=== PATIENT | female | born 1970 | race Caucasian/White ===

== ENCOUNTER 2020-10-14 16:04 | Inpatient (IN) ==
[2020-10-14] MEDS ORDERED: dilTIAZem HCl 5 MG/ML 5 ML VIAL IV STA (16:41)
[2020-10-14] MEDS ORDERED: STAT IV Infusion **Titration per Protocol STA (16:41)
[2020-10-14] MEDS ORDERED: SODIUM CHLORIDE 0.9% 500 ML IV SCH (16:45)
[2020-10-14] MEDS ORDERED: dilTIAZem HCL 125 MG in DEXTROSE 5% 100 ML IV SCH (16:45)
--- NOTE | 2020-10-14 16:48 | Emergency Department Note ---
Impression & Plan Syncope, Cervical strain, Hypertension, UTI (urinary tract infection), Atrial fibrillation ED Provider Note NAME: ALEX RICARDO AGE: 50 SEX: F : 1970 ARRIVES VIA: Walk-In INFORMANT: [Patient] ED PROVIDER(S): [Fabrizio Menezes MD] CHIEF COMPLAINT: Syncope HISTORY OF PRESENT ILLNESS: The patient is a 50-year-old female presents after a syncopal event. The patient was reaching into her car and shut the car door after. She felt a sudden pressure in the back of her neck and then she woke up on the ground. She had passed out. She complains of some posterior neck pain since falling, there is no headache. The neck pain is minimal. The patient does not have any chest pain, she is not short of breath. She has been in baseline health as of late with the exception of some left hand numbness. Her left hand has been numb for about a week, she felt it was likely a pinched nerve. She went to the chiropractor yesterday and had her neck manipulated, this did not really seem to help her symptoms. The patient is concerned that she might have mets to her brain. She had breast cancer several years ago and has bilateral mastectomies. She has never had a stroke. She has no heart history. REVIEW OF SYSTEMS: See HPI for pertinent positives and negatives. A total of ten systems were reviewed and were otherwise negative. PMHx/PSHx: See Below SOCIAL HISTORY: See Below. PHYSICAL EXAM: GENERAL: Patient is in no acute distress. HEENT: No acute trauma, normocephalic atraumatic, mucous membranes moist, no nasal congestion, no scleral icterus. NECK: No stridor, no adenopathy, no posterior C-spine step-off or point tenderness, trachea is midline. LUNGS: Clear to auscultation bilaterally, no wheeze, no rhonchi, breath sounds equal. HEART: Irregular and tachycardic, no murmurs. ABDOMEN: Soft, nontender, bowel sounds positive, no hernias, no peritonitis. EXTREMITIES: No cyanosis or edema, full range of motion of all the joints without pain or difficulty, no signs for acute trauma. NEUROLOGIC: Oriented x 3, no acute motor or sensory deficits, no focal weakness. The hand grasps are equal bilaterally. SKIN: No rash, no jaundice, no diaphoresis. DIFFERENTIAL DIAGNOSIS: Infection, dehydration, metabolic abnormality, carotid or vertebral artery dissection, stroke, atrial fibrillation, atrial flutter, SVT, PE, intracranial bleed, cervical spine fracture or strain, hypo/hyperglycemia, electrolyte disturbance, anemia, hypoxia, cardiac sources, intracerebral event, toxicologic issues, stroke, TIA, as well as other pathologies. EMERGENCY DEPARTMENT COURSE/PROCEDURES: ECG: Indication was syncope. The ECG shows atrial fibrillation with a rate of 109. There is no ST elevation, no PVCs. There is some nonspecific ST change. The QTc is 460. Repeat ECG: Indication was atrial fibrillation. The ECG shows what appears to be a normal sinus rhythm. The rate is 75. There is no ST elevation, no PVCs. The QTc is 448. Compared to the ECG from earlier today, the A. fib is no longer present. Continuous Cardiac Monitoring: An order was placed for continuous cardiac monitoring. The monitor shows a rate of 124 with atrial fibrillation. Critical Care Note: I have personally spent 45 minutes of critical care time in the direct management of this patient. This includes bedside care, interpretation of diagnostic studies, and testing, discussion with consultants, patient, and family members, and other required patient management activities. This 45 minutes is in excess of all separately billable procedures. MEDICAL DECISION MAKING: There is no leukocytosis or concerning anemia. There is a normal platelet count. No coagulopathy. No significant electrolyte abnormality or kidney failure. No concerning liver enzyme elevation. The patient appears to be in a euthyroid state. Urinalysis is suggestive of infection. Covid testing returned negative. Initial EKG showed a rapid A. fib, no acute ischemia. Repeat EKG a short time later showed a sinus rhythm. Cardiac enzyme testing x1 is not consistent with acute cardiac injury. Chest film does not show pneumonia or CHF. Brain CT shows no acute bleed or mass-effect. C-spine CT shows no acute fracture. CT angio of the head and neck do not show any evidence for aneurysm or occlusion. CT angio of the chest does not show evidence for PE or aortic dissection. The patient presents with syncope and collapse. This happened suddenly with hardly any warning. She felt pain in the back of her neck and then collapsed. She presented to this ED and was initially in a rapid A. fib. This spontaneously resolved without any medication administration. The patient received IV saline, 500 cc. She was given IV hydralazine for high blood pressure. She received IV ceftriaxone as treatment for UTI. The patient requires a hospital stay for what happened today. Further work-up is in order, I am concerned about dysrhythmia. With regard to the left hand numbness for a week, the etiology is unclear. Certainly, a small stroke could be the cause. MRI may be warranted during her hospital stay, a neurology con sult may be warranted during her hospital stay. I talked to the patient and case management. The on-call hospitalist was consulted. Past Med/Surg History Medical History Breast cancer, right Surgical History H/O resection of liver H/O right mastectomy Family History (Updated 10/15/18 @ 03:20 by Judd Rudd) Other No significant family history Social History Smoking Status: Never smoker Feels Safe at Home: Yes Allergies Allergies Allergy/AdvReac Type Severity Reaction Status Date / Time bupivacaine Allergy Severe anaphylaxis Verified 10/14/20 17:38 . dexamethasone Allergy Severe anaphylaxis Verified 10/14/20 17:38 lidocaine Allergy Severe anaphylactic Verified 10/14/20 17:38 rxn codeine Allergy Intermediate sick Verified 10/14/20 17:38 Home Meds Home Medications Medication Instructions Recorded Confirmed anastrozole 1 mg PO DAILY 10/15/18 10/14/20 Results & Data (ED) Vital Signs Vital Signs - 24 hr 10/14/20 16:14 10/14/20 16:30 10/14/20 16:33 Temperature 36.6 C Temperature Source Temporal Artery Scan Pulse Rate 79 132 H 135 H Pulse Rate [Right Finger] 138 H Pulse Rate from SpO2 Sensor 128 H 123 H Respiratory Rate 20 24 21 Respiratory Effort / Characteristics Non-Labored Spontaneous Non-Labored Spontaneous Respiratory Depth Normal Normal Respiratory Pattern Regular Regular Blood Pressure 158/103 H 152/113 H Blood Pressure [Left Arm] 152/113 H Blood Pressure Mean 121 126 Blood Pressure Mean [Left Arm] 126 Blood Pressure Position Sitting Blood Pressure Position [Left Arm] Sitting Pulse Oximetry 95 97 97 Oxygen Delivery Method Room Air Room Air Sepsis Recent Fever Within 48 Hours No Sepsis New/Unexplained Change in Mental Status N/A Sepsis Action Taken by Nursing No Action Required 10/14/20 16:40 10/14/20 16:42 10/14/20 16:50 Temperature Temperature Source Pulse Rate 148 H 75 Pulse Rate [Right Finger] Pulse Rate from SpO2 Sensor 113 H 75 Respiratory Rate 16 17 Respiratory Effort / Characteristics Respiratory Depth Respiratory Pattern Blood Pressure Blood Pressure [Left Arm] Blood Pressure Mean Blood Pressure Mean [Left Arm] Blood Pressure Position Blood Pressure Position [Left Arm] Pulse Oximetry 91 99 97 Oxygen Delivery Method Room Air Sepsis Recent Fever Within 48 Hours Sepsis New/Unexplained Change in Mental Status Sepsis Action Taken by Nursing 10/14/20 17:00 10/14/20 17:07 10/14/20 17:10 Temperature Temperature Source Pulse Rate 73 74 79 Pulse Rate [Right Finger] Pulse Rate from SpO2 Sensor 74 76 78 Respiratory Rate 16 20 17 Respiratory Effort / Characteristics Respiratory Depth Respiratory Pattern Blood Pressure 145/99 H Blood Pressure [Left Arm] Blood Pressure Mean 114 Blood Pressure Mean [Left Arm] Blood Pressure Position Blood Pressure Position [Left Arm] Pulse Oximetry 97 97 97 Oxygen Delivery Method Sepsis Recent Fever Within 48 Hours Sepsis New/Unexplained Change in Mental Status Sepsis Action Taken by Nursing 10/14/20 17:20 10/14/20 17:30 10/14/20 17:40 Temperature Temperature Source Pulse Rate 73 75 72 Pulse Rate [Right Finger] Pulse Rate from SpO2 Sensor 73 75 72 Respiratory Rate 19 20 17 Respiratory Effort / Characteristics Respiratory Depth Respiratory Pattern Blood Pressure 161/101 H Blood Pressure [Left Arm] Blood Pressure Mean 121 Blood Pressure Mean [Left Arm] Blood Pressure Position Blood Pressure Position [Left Arm] Pulse Oximetry 97 96 96 Oxygen Delivery Method Sepsis Recent Fever Within 48 Hours Sepsis New/Unexplained Change in Mental Status Sepsis Action Taken by Nursing 10/14/20 17:50 10/14/20 18:16 10/14/20 18:20 Temperature Temperature Source Pulse Rate 71 75 70 Pulse Rate [Right Finger] Pulse Rate from SpO2 Sensor 71 75 71 Respiratory Rate 15 17 17 Respiratory Effort / Characteristics Respiratory Depth Respiratory Pattern Blood Pressure Blood Pressure [Left Arm] Blood Pressure Mean Blood Pressure Mean [Left Arm] Blood Pressure Position Blood Pressure Position [Left Arm] Pulse Oximetry 96 97 97 Oxygen Delivery Method Sepsis Recent Fever Within 48 Hours Sepsis New/Unexplained Change in Mental Status Sepsis Action Taken by Nursing 10/14/20 18:30 10/14/20 19:30 10/14/20 20:00 Temperature Temperature Source Pulse Rate 71 67 63 Pulse Rate [Right Finger] Pulse Rate from SpO2 Sensor 71 Respiratory Rate 14 15 16 Respiratory Effort / Characteristics Respiratory Depth Respiratory Pattern Blood Pressure 164/103 H 146/103 H 151/106 H Blood Pressure [Left Arm] Blood Pressure Mean 123 117 121 Blood Pressure Mean [Left Arm] Blood Pressure Position Blood Pressure Position [Left Arm] Pulse Oximetry 97 97 98 Oxygen Delivery Method Sepsis Recent Fever Within 48 Hours Sepsis New/Unexplained Change in Mental Status Sepsis Action Taken by Nursing 10/14/20 20:30 10/14/20 21:00 10/14/20 21:30 Temperature Temperature Source Pulse Rate 72 71 72 Pulse Rate [Right Finger] Pulse Rate from SpO2 Sensor Respiratory Rate 17 16 15 Respiratory Effort / Characteristics Respiratory Depth Respiratory Pattern Blood Pressure 145/97 H 155/106 H 152/106 H Blood Pressure [Left Arm] Blood Pressure Mean 113 122 121 Blood Pressure Mean [Left Arm] Blood Pressure Position Blood Pressure Position [Left Arm] Pulse Oximetry 96 97 97 Oxygen Delivery Method Sepsis Recent Fever Within 48 Hours Sepsis New/Unexplained Change in Mental Status Sepsis Action Taken by Nursing 10/14/20 22:00 Temperature Temperature Source Pulse Rate 84 Pulse Rate [Right Finger] Pulse Rate from SpO2 Sensor Respiratory Rate 19 Respiratory Effort / Characteristics Respiratory Depth Respiratory Pattern Blood Pressure 156/98 H Blood Pressure [Left Arm] Blood Pressure Mean 117 Blood Pressure Mean [Left Arm] Blood Pressure Position Blood Pressure Position [Left Arm] Pulse Oximetry 95 Oxygen Delivery Method Sepsis Recent Fever Within 48 Hours Sepsis New/Unexplained Change in Mental Status Sepsis Action Taken by Long-Term Medications Current Medication List: was personally reviewed by me Laboratory Data Attestation: I reviewed the patient's lab results. Result diagrams: 10/14/20 16:52 10/14/20 16:52 Lab Results 10/14/20 10/14/20 10/14/20 Range/Units 16:52 16:52 16:52 WBC 7.64 (4.8-10.8) K/uL RBC 5.04 (4.2-5.4) M/uL Hgb 15.3 (12.0-16.0) g/dL Hct 45.1 (37-47) % MCV 89.5 (80-100) fL MCH 30.4 (25-34) pg MCHC 33.9 (32-36) g/dL RDW Std Deviation 43.8 (36.4-46.3) fL RDW Coeff of Stalin 13.4 (11.5-14.5) % Plt Count 336 (130-400) K/uL MPV 9.3 (7.4-10.4) fL Immature Gran % (Auto) 0.1 % Neut % (Auto) 58.3 % Lymph % (Auto) 30.5 % Wayne % (Auto) 7.9 % Eos % (Auto) 2.7 % Baso % (Auto) 0.5 % Neut # (Auto) 4.45 (1.4-6.5) K/uL Lymph # (Auto) 2.33 (1.2-3.4) K/uL Wayne # (Auto) 0.60 H (0.11-0.59) K/uL Eos # (Auto) 0.21 (0-0.5) K/uL Baso # (Auto) 0.04 (0-0.2) K/uL Immature Gran # (Auto) 0.01 (0.00-0.02) K/uL PT 9.4 (9.0-12.0) Seconds INR 0.9 (0.9-1.1) APTT 24.9 (21.0-31.0) Seconds PTT Ratio 0.9 Sodium 138 (136-145) mmol/L Potassium 4.1 (3.5-5.1) mmol/L Chloride 105 (98-107) mmol/L Carbon Dioxide 25 (21-32) mmol/L Anion Gap 8.0 (3-11) BUN 13 (7-18) mg/dl Creatinine 1.01 (0.6-1.2) mg/dl Est Cr Clr Drug Dosing 99.5 ml/min Est GFR ( Amer) 75.2 ml/min Est GFR (Non-Af Amer) 64.9 ml/min BUN/Creatinine Ratio 13.2 (10-20) Glucose 109 H (70-99) mg/dl Calcium 9.5 (8.5-10.1) mg/dl Magnesium 2.3 (1.8-2.4) mg/dl Total Bilirubin 0.3 (0.2-1) mg/dl AST 43 H (15-37) U/L ALT 67 (12-78) U/L Alkaline Phosphatase 48 (45-117) U/L Troponin I < 0.015 (0-0.045) ng/ml Total Protein 7.8 (6.4-8.2) gm/dl Albumin 4.1 (3.4-5.0) gm/dl Globulin 3.7 (2.5-4.0) gm/dl Albumin/Globulin Ratio 1.1 (0.9-2) TSH 2.130 (0.300-4.500) uIu/ml Specimen Hemolysis Urine Color Urine Appearance (Clear) Urine pH (4.5-7.5) Ur Specific [place] (1.000-1.030) Urine Protein (Negative) Urine Glucose (UA) (Negative) Urine Ketones (Negative) Urine Blood (Negative) Urine Nitrite (Negative) Urine Bilirubin (Negative) Urine Urobilinogen (Negative) Ur Leukocyte Esterase (Negative) Urine WBC (Auto) (0-5) /hpf Urine RBC (Auto) (0-4) /hpf U Hyaline Cast (Auto) (0-5) /lpf U Epithel Cells (Auto) (0-5) /lpf Urine Bacteria (Auto) (Negative) Urine Yeast COVID-19 Eval Order SARS-CoV-2 (PCR) (Negative) 10/14/20 10/14/20 10/14/20 Range/Units 18:56 19:48 19:48 WBC (4.8-10.8) K/uL RBC (4.2-5.4) M/uL Hgb (12.0-16.0) g/dL Hct (37-47) % MCV (80-100) fL MCH (25-34) pg MCHC (32-36) g/dL RDW Std Deviation (36.4-46.3) fL RDW Coeff of Stalin (11.5-14.5) % Plt Count (130-400) K/uL MPV (7.4-10.4) fL Immature Gran % (Auto) % Neut % (Auto) % Lymph % (Auto) % Wayne % (Auto) % Eos % (Auto) % Baso % (Auto) % Neut # (Auto) (1.4-6.5) K/uL Lymph # (Auto) (1.2-3.4) K/uL Wayne # (Auto) (0.11-0.59) K/uL Eos # (Auto) (0-0.5) K/uL Baso # (Auto) (0-0.2) K/uL Immature Gran # (Auto) (0.00-0.02) K/uL PT (9.0-12.0) Seconds INR (0.9-1.1) APTT (21.0-31.0) Seconds PTT Ratio Sodium (136-145) mmol/L Potassium (3.5-5.1) mmol/L Chloride (98-107) mmol/L Carbon Dioxide (21-32) mmol/L Anion Gap (3-11) BUN (7-18) mg/dl Creatinine (0.6-1.2) mg/dl Est Cr Clr Drug Dosing ml/min Est GFR ( Amer) ml/min Est GFR (Non-Af Amer) ml/min BUN/Creatinine Ratio (10-20) Glucose (70-99) mg/dl Calcium (8.5-10.1) mg/dl Magnesium (1.8-2.4) mg/dl Total Bilirubin (0.2-1) mg/dl AST (15-37) U/L ALT (12-78) U/L Alkaline Phosphatase (45-117) U/L Troponin I (0-0.045) ng/ml Total Protein (6.4-8.2) gm/dl Albumin (3.4-5.0) gm/dl Globulin (2.5-4.0) gm/dl Albumin/Globulin Ratio (0.9-2) TSH (0.300-4.500) uIu/ml Specimen Hemolysis Urine Color Yellow Urine Appearance Cloudy A (Clear) Urine pH 7.0 (4.5-7.5) Ur Specific [place] 1.042 H (1.000-1.030) Urine Protein Negative (Negative) Urine Glucose (UA) Negative (Negative) Urine Ketones Negative (Negative) Urine Blood Negative (Negative) Urine Nitrite Negative (Negative) Urine Bilirubin Negative (Negative) Urine Urobilinogen Negative (Negative) Ur Leukocyte Esterase 2+ H (Negative) Urine WBC (Auto) >30 H (0-5) /hpf Urine RBC (Auto) 0-4 (0-4) /hpf U Hyaline Cast (Auto) 1-5 (0-5) /lpf U Epithel Cells (Auto) 20-30 H (0-5) /lpf Urine Bacteria (Auto) Negative (Negative) Urine Yeast Not Reportable COVID-19 Eval Order Covid19 at [facility] SARS-CoV-2 (PCR) NEGATIVE (Negative) Administered Medications Discontinued Medications Hydralazine HCl (Hydralazine Hcl 20 Mg/Ml Vial) 10 mg IV NOW STA Stop: 10/14/20 19:56 Last Admin: 10/14/20 20:14 Dose: 10 mg Documented by: [id number] Sodium Chloride (Nss) 500 mls @ 999 mls/hr IV .Q31M ZOE Stop: 10/14/20 17:15 Last Infusion: 10/14/20 17:53 Dose: 0 mls/hr Documented by: [id number] Admin: 10/14/20 17:08 Dose: 999 mls/hr Documented by: [id number] Ceftriaxone Sodium (Rocephin) 2,000 mg in 70 mls @ 140 mls/hr IV NOW STA Stop: 10/14/20 19:54 Last Infusion: 10/14/20 20:16 Dose: 0 mls/hr Documented by: [id number] Admin: 10/14/20 19:46 Dose: 140 mls/hr Documented by: [id number] Ioversol (Optiray 350 500ml) 112 ml IV ONCE ONE Stop: 10/14/20 18:12 Last Admin: 10/14/20 18:11 Dose: 112 ml Documented by: [id number] Miscellaneous (Stat Iv Infusion Titration Per Protocol) 1 ea N/A NOW STA Stop: 10/14/20 16:42 Last Admin: 10/14/20 18:47 Dose: Not Given Documented by: [id number] Imaging Data Radiologist's Impression: Cervical Spine CT 10/14/20 16:42 CT OF THE CERVICAL SPINE CLINICAL HISTORY: Neck pain status post trauma. Left arm numbness. History of neck manipulation. COMPARISON STUDY: No previous studies for comparison. CT DOSE: TECHNIQUE: CT scan of the cervical spine was performed from the skull base to the thoracic inlet. Images are reviewed in the axial, sagittal, and coronal planes. IV contrast was not administered for this examination. A dose lowering technique was utilized adhering to the principles of ALARA. FINDINGS: There are shotty bilateral cervical lymph nodes, statistically reactive. The visualized portions of the lung apices reveal no evidence of pneumothorax. The prevertebral soft tissues are normal. No fractures or subluxations are visualized. There are multilevel degenerative changes, most severe at the C5-C6, and C6-7 levels with posterior osteophytes. IMPRESSION: No evidence of acute fracture or traumatic subluxation. ACT 112: Negative or not required by law. Electronically signed by: Alex Alexander M.D. 10/14/2020 6:20 PM Chest CTA 10/14/20 16:42 CT ANGIOGRAM OF THE CHEST CLINICAL HISTORY: Syncope. Possible acute pulmonary embolism. COMPARISON STUDY: Chest x-ray dated 10/14/2020 TECHNIQUE: Following the IV administration of 112 mL of Optiray, CT angiogram of the thorax was performed from the thoracic inlet to the lung bases utilizing the pulmonary embolus protocol. Images are reviewed in the axial, sagittal, and coronal planes. IV contrast was administered without complication. MIP imaging was performed. A dose lowering technique was utilized adhering to the principles of ALARA. CT DOSE: FINDINGS: No pathologically enlarged axillary mediastinal or hilar lymph nodes were visualized. There was no evidence of thoracic aortic dilatation. Pulmonary artery opacification is less than optimal. There are however no pulmonary artery filling defects to indicate acute pulmonary embolism. No pleural effusions are visualized. There are benign appearing peripheral interstitial nodules along the major fissure. There is no focal pulmonary consolidation to indicate a pneumonia. There is no pneumothorax. Typically benign subpleural nodules are also visualized within the left upper lobe. None of these exceed 3 mm in diameter. In an average risk patient, no further follow-up is indicated. IMPRESSION: 1. Suboptimal pulmonary arterial opacification, but no findings to indicate acute pulmonary embolism. If pulmonary embolism remains a strong clinical concern, correlation with serial leg ultrasonography would be recommended. 2. No evidence of focal pulmonary consolidation 3. Multiple subpleural left lung pulmonary nodules. In an average risk patient, no further follow-up is indicated. ACT 112: Negative or not required by law. Electronically signed by: Alex Alexander M.D. 10/14/2020 6:[address] 10/14/20 16:42 CT head/brain wo con CLINICAL HISTORY: Head pain status post trauma. Left arm numbness. COMPARISON STUDY: No previous studies for comparison. TECHNIQUE: Axial CT of the brain is performed from the vertex to the skull base. IV contrast was not administered for this examination. A dose lowering technique was utilized adhering to the principles of ALARA. CT DOSE: FINDINGS: No intra or extra-axial mass lesions are visualized. There are age-indeterminate left basal ganglia lacunar infarcts. There is no midline shift. There is no acute hemorrhage. No calvarial fractures are visualized. There is no evidence of pathologic ventricular dilatation. There is no evidence of acute sinusitis IMPRESSION: 1. Age-indeterminate basal ganglia lacunar infarcts. 2. An MRI could be obtained in follow-up as deemed clinically appropriate. ACT 112: Negative or not required by law. Electronically signed by: Alex Alexander M.D. 10/14/2020 6:19 PM Neck CTA 10/14/20 16:42 CT angio neck with con CLINICAL HISTORY: Left hand numbness status post neck manipulation. Head trauma. Left arm numbness. COMPARISON STUDY: No previous studies for comparison. TECHNIQUE: CT angiography was performed from the aortic arch to the skull base. MIP imaging was performed. The patient was scanned in a dynamic helical fashion during intravenous administration of 112 cc of Optiray. A dose lowering technique was utilized adhering to the principles of ALARA. CT DOSE: Technique: CT angiogram of the carotid and vertebral arteries was obtained using intravenous contrast and 3-D reconstruction. NASCET criteria was utilized. Findings: The right carotid revealed no evidence of aneurysm and no evidence of dissection. There is no evidence of hemodynamic significant stenosis. The left carotid revealed no evidence of hemodynamic significant stenosis. There is no evidence of aneurysm. There is no evidence of dissection. There is no evidence of hemodynamically significant vertebral stenosis. There is no evidence of vertebral dissection. IMPRESSION: No evidence of hemodynamically significant carotid or vertebral artery stenosis. No evidence of dissection. ACT 112: Negative or not required by law. Electronically signed by: Alex Alexander M.D. 10/14/2020 6:30 PM Head CTA 10/14/20 16:44 CT angio head w con CLINICAL HISTORY: left hand numb, syncope TECHNIQUE: CT angiography of the head was performed in a dynamic helical fashion during intravenous administration of 112 cc of Optiray. MIP imaging was performed. A dose lowering technique was utilized adhering to the principles of ALARA. CT DOSE: 3064.43 mGy.cm COMPARISON STUDY: Noncontrast head CT dated 10/14/2020 FINDINGS: There are no lesion suspicious for aneurysm. There are no major intra cranial branch occlusions. The dural venous sinuses appear patent. IMPRESSION: 1. No evidence of aneurysm, intracranial branch occlusion, or major intracranial stenosis. ACT 112: Negative or not required by law. Electronically signed by: Alex Alexander M.D. 10/14/2020 6:34 PM Chest X-Ray 10/14/20 16:45 XR chest 1V portable CLINICAL HISTORY: syncope COMPARISON STUDY: No previous studies for comparison. FINDINGS: The cardiac and mediastinal contours are normal. There is no evidence of focal pulmonary consolidation. There is no evidence of failure. No pleural effusions are visualized.[ IMPRESSION: No active disease in the chest. ACT 112: Negative or not required by law. Electronically signed by: Alex Alexander M.D. 10/14/2020 5:10 PM Head Trauma GCS Score: 15 Discharge Plan Visit Data Chief Complaint: Neuro Symptoms/Deficit Stated Complaint: PASSED OUT AT WORK, L HAND NUMBNESS ED Provider: Fabrizio Menezes Discharge Problem: Syncope, Cervical strain, Hypertension, UTI (urinary tract infection), Atrial fibrillation Patient Disposition: Admitted As Inpatient Condition: Fair Discharge Instructions Interventions: ED Discharge Assessment Last Done: 10/14/20 22:17 Discharge Problem: Syncope Qualifiers: Syncope type: unspecified Qualified Code(s): R55 - Syncope and collapse Cervical strain Qualifiers: Encounter type: initial encounter Qualified Code(s): S16.1XXA - Strain of muscle, fascia and tendon at neck level, initial encounter Hypertension Qualifiers: Hypertension type: unspecified Qualified Code(s): I10 - Essential (primary) hypertension UTI (urinary tract infection) Qualifiers: Urinary tract infection type: acute cystitis Hematuria presence: without hematuria Qualified Code(s): N30.00 - Acute cystitis without hematuria Atrial fibrillation Qualifiers: Atrial fibrillation type: paroxysmal Qualified Code(s): I48.0 - Paroxysmal atrial fibrillation
[2020-10-14 17:04] LABS: Basophils # (auto) 0.04 K/uL (0-0.2); Basophils % (auto) 0.5 %; Eosinophils # (auto) 0.21 K/uL (0-0.5); Eosinophils % (auto) 2.7 %; Hematocrit (blood only) 45.1 % (37-47); Hemoglobin 15.3 g/dL (12.0-16.0); Immature Granulocytes # (auto) 0.01 K/uL (0.00-0.02); Immature Granulocytes % (auto) 0.1 %; Lymphocytes # (auto) 2.33 K/uL (1.2-3.4); Lymphocytes % (auto) 30.5 %; Mean Corpuscular Hemoglobin 30.4 pg (25-34); Mean Corpuscular Hgb Conc 33.9 g/dL (32-36); Mean Corpuscular Volume 89.5 fL (80-100); Mean Platelet Volume 9.3 fL (7.4-10.4); Monocytes % (auto) 7.9 %; Neutrophils # (auto) 4.45 K/uL (1.4-6.5); Neutrophils % (auto) 58.3 %; Platelet Count 336 K/uL (130-400); RDW Coefficient of Variation 13.4 % (11.5-14.5); RDW Standard Deviation 43.8 fL (36.4-46.3); Red Blood Count 5.04 M/uL (4.2-5.4); White Blood Count 7.64 K/uL (4.8-10.8)
--- NOTE | 2020-10-14 17:11 | XRay Report ---
XR chest 1V portable CLINICAL HISTORY: syncope COMPARISON STUDY: No previous studies for comparison. FINDINGS: The cardiac and mediastinal contours are normal. There is no evidence of focal pulmonary co nsolidation. There is no evidence of failure. No pleural effusions are visualized.[ IMPRESSION: No active disease in the chest. ACT 112: Negative or not required by law. Electronically signed by: Alex Alexander M.D. 10/14/2020 5:10 PM
[2020-10-14 17:15] LABS: INR 0.9 (0.9-1.1); Partial Thromboplastin Ratio 0.9; Partial Thromboplastin Time 24.9 Seconds (21.0-31.0); Prothrombin Time 9.4 Seconds (9.0-12.0)
[2020-10-14 17:53] LABS: Alanine Aminotransferase 67 U/L (12-78); Albumin Level 4.1 gm/dl (3.4-5.0); Aspartate Aminotransferase 43 U/L (15-37); BUN Creatinine Ratio 13.2 (10-20); Blood Urea Nitrogen 13 mg/dl (7-18); Calcium 9.5 mg/dl (8.5-10.1); Carbon Dioxide 25 mmol/L (21-32); Chloride 105 mmol/L (98-107); Creatinine Clr Calc Pharmacy 99.5 ml/min; Est GFR (African American) 75.2 ml/min; Est GFR (Non-African American) 64.9 ml/min; Glucose 109 mg/dl (70-99); Potassium 4.1 mmol/L (3.5-5.1); Sodium 138 mmol/L (136-145)
[2020-10-14 18:01] LABS: Albumin Globulin Ratio 1.1 (0.9-2); Alkaline Phosphatase 48 U/L (45-117); Bilirubin,Total 0.3 mg/dl (0.2-1); Globulin 3.7 gm/dl (2.5-4.0); Magnesium 2.3 mg/dl (1.8-2.4); Total Protein 7.8 gm/dl (6.4-8.2); Troponin I < 0.015 ng/ml (0-0.045)
[2020-10-14] MEDS ORDERED: OPTIRAY 350 500ml IV ONE (18:11)
--- NOTE | 2020-10-14 18:20 | CT Scan Report ---
CT head/brain wo con CLINICAL HISTORY: Head pain status post trauma. Left arm numbness. COMPARISON STUDY: No previous studies for comparison. TECHNIQUE: Axial CT of the brain is performed from the vertex to the skull base. IV contrast was not administered for this examination. A dose lowering technique was utilized adhering to the principles of ALARA. CT DOSE: FINDINGS: No intra or extra-axial mass lesions are visualized. There are age-indeterminate left basal ganglia l acunar infarcts. There is no midline shift. There is no acute hemorrhage. No calvarial fractures are visualized. There is no evidence of pathologic ventricular dilatation. There is no evidence of acute sinusitis IMPRESSION: 1. Age-indeterminate basal ganglia lacunar infarcts. 2. An MRI could be obtained in follow-up as deemed clinically appropriate. ACT 112: Negative or not required by law. Electronically signed by: Alex Alexander M.D. 10/14/2020 6:19 PM
--- NOTE | 2020-10-14 18:21 | CT Scan Report ---
CT OF THE CERVICAL SPINE CLINICAL HISTORY: Neck pain status post trauma. Left arm numbness. History of neck manipulation. COMPARISON STUDY: No previous studies for comparison. CT DOSE: TECHNIQUE: CT scan of the cervical spine was performed from the skull base to the thoracic inlet. Abena ges are reviewed in the axial, sagittal, and coronal planes. IV contrast was not administered for thi s examination. A dose lowering technique was utilized adhering to the principles of ALARA. FINDINGS: There are shotty bilateral cervical lymph nodes, statistically reactive. The visualized portions of the lung apices reveal no evidence of pneumothorax. The prevertebral soft tissues are normal. No fractures or subluxations are visualized. There are multilevel degenerative changes, most severe at the C5-C6, and C6-7 levels with posterior o steophytes. IMPRESSION: No evidence of acute fracture or traumatic subluxation. ACT 112: Negative or not required by law. Electronically signed by: Alex Alexander M.D. 10/14/2020 6:20 PM
--- NOTE | 2020-10-14 18:32 | CT Scan Report ---
CT angio neck with con CLINICAL HISTORY: Left hand numbness status post neck manipulation. Head trauma. Left arm numbness. COMPARISON STUDY: No previous studies for comparison. TECHNIQUE: CT angiography was performed from the aortic arch to the skull base. MIP imaging was perfo rmed. The patient was scanned in a dynamic helical fashion during intravenous administration of 112 c c of Optiray. A dose lowering technique was utilized adhering to the principles of ALARA. CT DOSE: Technique: CT angiogram of the carotid and vertebral arteries was obtained using intravenous contrast and 3-D reconstruction. NASCET criteria was utilized. Findings: The right carotid revealed no evidence of aneurysm and no evidence of dissection. There is no evidenc e of hemodynamic significant stenosis. The left carotid revealed no evidence of hemodynamic significant stenosis. There is no evidence of an eurysm. There is no evidence of dissection. There is no evidence of hemodynamically significant vertebral stenosis. There is no evidence of verte bral dissection. IMPRESSION: No evidence of hemodynamically significant carotid or vertebral artery stenosis. No evidence of disse ction. ACT 112: Negative or not required by law. Electronically signed by: Alex Alexander M.D. 10/14/2020 6:30 PM
--- NOTE | 2020-10-14 18:35 | CT Scan Report ---
CT angio head w con CLINICAL HISTORY: left hand numb, syncope TECHNIQUE: CT angiography of the head was performed in a dynamic helical fashion during intravenous a dministration of 112 cc of Optiray. MIP imaging was performed. A dose lowering technique was utilized adhering to the principles of ALARA. CT DOSE: 3064.43 mGy.cm COMPARISON STUDY: Noncontrast head CT dated 10/14/2020 FINDINGS: There are no lesion suspicious for aneurysm. There are no major intracranial branch occlusi ons. The dural venous sinuses appear patent. IMPRESSION: 1. No evidence of aneurysm, intracranial branch occlusion, or major intracranial stenosis. ACT 112: Negative or not required by law. Electronically signed by: Alex Alexander M.D. 10/14/2020 6:34 PM
--- NOTE | 2020-10-14 18:42 | CT Scan Report ---
CT ANGIOGRAM OF THE CHEST CLINICAL HISTORY: Syncope. Possible acute pulmonary embolism. COMPARISON STUDY: Chest x-ray dated 10/14/2020 TECHNIQUE: Following the IV administration of 112 mL of Optiray, CT angiogram of the thorax was perfo rmed from the thoracic inlet to the lung bases utilizing the pulmonary embolus protocol. Images are r eviewed in the axial, sagittal, and coronal planes. IV contrast was administered without complication . MIP imaging was performed. A dose lowering technique was utilized adhering to the principles of AL ASAF. CT DOSE: FINDINGS: No pathologically enlarged axillary mediastinal or hilar lymph nodes were visualized. There was no evidence of thoracic aortic dilatation. Pulmonary artery opacification is less than optimal. There are however no pulmonary artery filling de fects to indicate acute pulmonary embolism. No pleural effusions are visualized. There are benign appearing peripheral interstitial nodules along the major fissure. There is no focal pulmonary consolidation to indicate a pneumonia. There is no pneumothorax. Typically benign subpleur al nodules are also visualized within the left upper lobe. None of these exceed 3 mm in diameter. In an average risk patient, no further follow-up is indicated. IMPRESSION: 1. Suboptimal pulmonary arterial opacification, but no findings to indicate acute pulmonary embolism. If pulmonary embolism remains a strong clinical concern, correlation with serial leg ultrasonography would be recommended. 2. No evidence of focal pulmonary consolidation 3. Multiple subpleural left lung pulmonary nodules. In an average risk patient, no further follow-up is indicated. ACT 112: Negative or not required by law. Electronically signed by: Alex Alexander M.D. 10/14/2020 6:41 PM
[2020-10-14 19:12] LABS: Appearance Urine Cloudy (Clear); Bacteria Urine Automated Negative (Negative); Bilirubin Urine Negative (Negative); Blood Urine Negative (Negative); Color Urine Yellow; Epithelial Cell Urine Auto 20-30 /lpf (0-5); Glucose Urine UA Negative (Negative); Ketones Urine Negative (Negative); Leukocyte Esterase Urine 2+ (Negative); Nitrite Urine Negative (Negative); Protein Urine Negative (Negative); RBC Urine Automated 0-4 /hpf (0-4); Specific Gravity Urine 1.042 (1.000-1.030); Urobilinogen Urine Negative (Negative); WBC Urine Automated >30 /hpf (0-5)
[2020-10-14] MEDS ORDERED: cefTRIAXone SODIUM 2,000 MG/70 ML BAG IV STA (19:25)
[2020-10-14] MEDS ORDERED: hydrALAZINE HCL 20 MG/ML VIAL IV STA (19:55)
--- NOTE | 2020-10-14 21:10 | History & Physical Report ---
Date of Service October 14, 2020 Assessment & Plan (1) Syncope: Syncope- Unclear etiology. May be secondary to physiologic stress of urinary tract infection and mild dehydration Imaging is not consistent with acute stroke Symptoms possibly consistent with vertebrobasilar insufficiency, however, CTA of neck was negative We will place on stroke without TPA protocol, but not convinced that the patient has had an acute stroke as cause of symptoms Consult neurology Present on Admission?: Yes (2) Numbness of left hand: Duration of 1 week. She does have more pronounced cervical degenerative joint disease/foraminal narrowing on left on MRI of C-spine. She does have some chronic changes on MRI brain. Consult neurology for their opinion Present on Admission?: Yes (3) Degenerative joint disease of cervical spine: MRI cervical spine level foraminal stenosis from C3-C7 Present on Admission?: Yes (4) Chronic cerebrovascular accident (CVA): MRI of brain shows chronic infarct left lentiform nucleus starting baby aspirin daily Present on Admission?: Yes (5) UTI (urinary tract infection): Follow urine culture and sensitivity Continue ceftriaxone 2 g IV daily for empiric treatment Present on Admission?: Yes (6) Atrial flutter: Initial EKG showed asymptomatic atrial flutter, with follow-up EKG showing normal sinus rhythm. Start baby aspirin 81 mg daily Present on Admission?: Yes History of Present Illness Chief Complaint: The patient presents to the emergency department with complaint of a syncopal episode that occurred as she was reaching into her car and then shutting the car door afterwards, and complaint of 1 week of left hand numbness Primary Care Provider: Santosh Rosas The patient is a 50-year-old female with a past medical history including breast cancer, who presents to the emergency department with complaint of a syncopal episodes noted above, and 1 week of left hand numbness. Work-up in the emergency department included the following studies: CT of head without contrast showed age indeterminate basal ganglia infarcts CTA head neck were both negative MRI of brain showed a chronic infarct in the left lentiform nucleus MRI of C-spine showed multilevel foraminal stenosis from C3-C7. Initial EKG showed atrial flutter at rate of 100 bpm. Follow-up EKG showed normal sinus rhythm at 75 bpm. The change occurred without intervention Allergies Allergy/AdvReac Type Severity Reaction Status Date / Time bupivacaine Allergy Severe anaphylaxis Verified 10/14/20 17:38 . dexamethasone Allergy Severe anaphylaxis Verified 10/14/20 17:38 lidocaine Allergy Severe anaphylactic Verified 10/14/20 17:38 rxn codeine Allergy Intermediate sick Verified 10/14/20 17:38 Home Medications Medication Instructions Recorded Confirmed Type anastrozole 1 mg PO DAILY 10/15/18 10/14/20 History Past Med/Surg History Medical History Breast cancer, right Surgical History H/O resection of liver H/O right mastectomy Family History (Updated 10/15/18 @ 03:20 by Judd Rudd) Other No significant family history Social History Smoking Status: Never smoker Hx Substance Use: No Preferred Language: Yoruba Communication Ability: Effective Crushed Stone Grader Required: No Beliefs That Will Affect Care: None Current Living Situation: Spouse Current Living Situation Comment: Other Information That Helps Us Care for You: No Feels Safe at Home: Yes Safety Concerns: Feels Safe At This Time Assistive Devices: None Review of Systems Review of Systems: The patient denies chest pain, palpitations, shortness of breath, dyspnea on exertion, cough, lower extremity swelling, sore throat, fevers, chills, sweats, nausea, vomiting, diarrhea , constipation, abdominal pain, pelvic pain, blood in urine or stool, dysuria, urinary frequency or urgency, lightheadedness, dizziness, headache, rash, abnormal bruising or bleeding, imbalance, focal or generalized weakness, numbness or tingling in legs, generalized arthralgias or myalgias, or night sweats. The review of systems is otherwise negative other than for that already noted above, and at least 10 systems have been reviewed. Physical Exam Physical Exam: The patient is awake, alert and oriented 3, well developed and well nourished, normocephalic and atraumatic, lying in bed and in no acute distress. HEENT--PERRL, EOMI, mucous membranes and oropharynx dry. Neck--supple. No JVD. No bruits. Thyroid normal, trachea midline, no adenopathy. Heart--normal S1 and S2. No murmurs, rubs or gallops. Lungs--clear bilaterally, no respiratory distress, no accessory muscle use. Abdomen--normal bowel sounds and soft. Nontender. Nondistended. Morbidly obese Extremities--no cyanosis or clubbing. No edema. Dermatologic--normal skin turgor, normal color, no abnormal lymph nodes, no rash. Neurologic--cranial nerves II through XII grossly intact. Mildly decreased sensation to touch left hand Rheumatologic--normal range of motion. Psychiatric--normal affect. Results & Data Results & Data ([facility]) Vital Signs (Past 12 Hours) Vital Signs Temp Pulse Pulse Resp BP BP Pulse Ox 10/14/20 21:00 71 16 155/106 H 97 10/14/20 20:30 72 17 145/97 H 96 10/14/20 20:00 63 16 151/106 H 98 10/14/20 19:30 67 15 146/103 H 97 10/14/20 18:30 71 14 164/103 H 97 10/14/20 18:20 70 17 97 10/14/20 18:16 75 17 97 10/14/20 17:50 71 15 96 10/14/20 17:40 72 17 96 10/14/20 17:30 75 20 161/101 H 96 10/14/20 17:20 73 19 97 10/14/20 17:10 79 17 97 10/14/20 17:07 74 20 145/99 H 97 10/14/20 17:00 73 16 97 10/14/20 16:50 75 17 97 10/14/20 16:42 99 10/14/20 16:40 148 H 16 91 10/14/20 16:33 135 H 138 H 21 152/113 H 97 10/14/20 16:30 132 H 24 152/113 H 97 10/14/20 16:14 97.9 F 79 20 158/103 H 95 Laboratory Results Laboratory Results WBC 7.64 K/uL (4.8-10.8) 10/14/20 16:52 RBC 5.04 M/uL (4.2-5.4) 10/14/20 16:52 Hgb 15.3 g/dL (12.0-16.0) 10/14/20 16:52 Hct 45.1 % (37-47) 10/14/20 16:52 MCV 89.5 fL (80-100) 10/14/20 16:52 MCH 30.4 pg (25-34) 10/14/20 16:52 MCHC 33.9 g/dL (32-36) 10/14/20 16:52 RDW Std Deviation 43.8 fL (36.4-46.3) 10/14/20 16:52 RDW Coeff of Stalin 13.4 % (11.5-14.5) 10/14/20 16:52 Plt Count 336 K/uL (130-400) 10/14/20 16:52 MPV 9.3 fL (7.4-10.4) 10/14/20 16:52 Immature Gran % (Auto) 0.1 % 10/14/20 16:52 Neut % (Auto) 58.3 % 10/14/20 16:52 Lymph % (Auto) 30.5 % 10/14/20 16:52 [place] % (Auto) 7.9 % 10/14/20 16:52 Eos % (Auto) 2.7 % 10/14/20 16:52 Baso % (Auto) 0.5 % 10/14/20 16:52 Neut # (Auto) 4.45 K/uL (1.4-6.5) 10/14/20 16:52 Lymph # (Auto) 2.33 K/uL (1.2-3.4) 10/14/20 16:52 [place] # (Auto) 0.60 K/uL (0.11-0.59) H 10/14/20 16:52 Eos # (Auto) 0.21 K/uL (0-0.5) 10/14/20 16:52 Baso # (Auto) 0.04 K/uL (0-0.2) 10/14/20 16:52 Immature Gran # (Auto) 0.01 K/uL (0.00-0.02) 10/14/20 16:52 PT 9.4 Seconds (9.0-12.0) 10/14/20 16:52 INR 0.9 (0.9-1.1) 10/14/20 16:52 APTT 24.9 Seconds (21.0-31.0) 10/14/20 16:52 PTT Ratio 0.9 10/14/20 16:52 Sodium 138 mmol/L (136-145) 10/14/20 16:52 Potassium 4.1 mmol/L (3.5-5.1) 10/14/20 16:52 Chloride 105 mmol/L (98-107) 10/14/20 16:52 Carbon Dioxide 25 mmol/L (21-32) 10/14/20 16:52 Anion Gap 8.0 (3-11) 10/14/20 16:52 BUN 13 mg/dl (7-18) 10/14/20 16:52 Creatinine 1.01 mg/dl (0.6-1.2) 10/14/20 16:52 Est Cr Clr Drug Dosing 99.5 ml/min 10/14/20 16:52 Est GFR ( Amer) 75.2 ml/min 10/14/20 16:52 Est GFR (Non-Af Amer) 64.9 ml/min 10/14/20 16:52 BUN/Creatinine Ratio 13.2 (10-20) 10/14/20 16:52 Glucose 109 mg/dl (70-99) H 10/14/20 16:52 Calcium 9.5 mg/dl (8.5-10.1) 10/14/20 16:52 Magnesium 2.3 mg/dl (1.8-2.4) 10/14/20 16:52 Total Bilirubin 0.3 mg/dl (0.2-1) 10/14/20 16:52 AST 43 U/L (15-37) H 10/14/20 16:52 ALT 67 U/L (12-78) 10/14/20 16:52 Alkaline Phosphatase 48 U/L (45-117) 10/14/20 16:52 Troponin I < 0.015 ng/ml (0-0.045) 10/14/20 16:52 Total Protein 7.8 gm/dl (6.4-8.2) 10/14/20 16:52 Albumin 4.1 gm/dl (3.4-5.0) 10/14/20 16:52 Globulin 3.7 gm/dl (2.5-4.0) 10/14/20 16:52 Albumin/Globulin Ratio 1.1 (0.9-2) 10/14/20 16:52 TSH 2.130 uIu/ml (0.300-4.500) 10/14/20 16:52 Specimen Hemolysis 10/14/20 16:52 Urine Color Yellow 10/14/20 18:56 Urine Appearance Cloudy (Clear) A 10/14/20 18:56 Urine pH 7.0 (4.5-7.5) 10/14/20 18:56 Ur Specific [place] 1.042 (1.000-1.030) H 10/14/20 18:56 Urine Protein Negative (Negative) 10/14/20 18:56 Urine Glucose (UA) Negative (Negative) 10/14/20 18:56 Urine Ketones Negative (Negative) 10/14/20 18:56 Urine Blood Negative (Negative) 10/14/20 18:56 Urine Nitrite Negative (Negative) 10/14/20 18:56 Urine Bilirubin Negative (Negative) 10/14/20 18:56 Urine Urobilinogen Negative (Negative) 10/14/20 18:56 Ur Leukocyte Esterase 2+ (Negative) H 10/14/20 18:56 Urine WBC (Auto) >30 /hpf (0-5) H 10/14/20 18:56 Urine RBC (Auto) 0-4 /hpf (0-4) 10/14/20 18:56 U Hyaline Cast (Auto) 1-5 /lpf (0-5) 10/14/20 18:56 U Epithel Cells (Auto) 20-30 /lpf (0-5) H 10/14/20 18:56 Urine Bacteria (Auto) Negative (Negative) 10/14/20 18:56 Urine Yeast Not Reportable 10/14/20 18:56 COVID-19 Eval Order Covid19 at [facility] 10/14/20 19:48 SARS-CoV-2 (PCR) NEGATIVE (Negative) 10/14/20 19:[address] 10/14/20 16:42 CT OF THE CERVICAL SPINE CLINICAL HISTORY: Neck pain status post trauma. Left arm numbness. History of n nilesh manipulation. COMPARISON STUDY: No previous studies for comparison. CT DOSE: TECHNIQUE: CT scan of the cervical spine was performed from the skull base to the thoracic inlet. Images are reviewed in the axial, sagittal, and coronal planes. IV contrast was not administered for this examination. A dose lowering technique was utilized adhering to the principles of ALARA. FINDINGS: There are shotty bilateral cervical lymph nodes, statistically reactive. The visualized portions of the lung apices reveal no evidence of pneumothorax. The prevertebral soft tissues are normal. No fractures or subluxations are visualized. There are multilevel degenerative changes, most severe at the C5-C6, and C6-7 levels with posterior osteophytes. IMPRESSION: No evidence of acute fracture or traumatic subluxation. ACT 112: Negative or not required by law. Electronically signed by: Alex Alexander M.D. 10/14/2020 6:20 PM Chest CTA 10/14/20 16:42 CT ANGIOGRAM OF THE CHEST CLINICAL HISTORY: Syncope. Possible acute pulmonary embolism. COMPARISON STUDY: Chest x-ray dated 10/14/2020 TECHNIQUE: Following the IV administration of 112 mL of Optiray, CT angiogram of the thorax was performed from the thoracic inlet to the lung bases utilizing the pulmonary embolus protocol. Images are reviewed in the axial, sagittal, and coronal planes. IV contrast was administered without complication. MIP imaging was performed. A dose lowering technique was utilized adhering to the principles of ALARA. CT DOSE: FINDINGS: No pathologically enlarged axillary mediastinal or hilar lymph nodes were visualized. There was no evidence of thoracic aortic dilatation. Pulmonary artery opacification is less than optimal. There are however no pu lmonary artery filling defects to indicate acute pulmonary embolism. No pleural effusions are visualized. There are benign appearing peripheral interstitial nodules along the major fissure. There is no focal pulmonary consolidation to indicate a pneumonia. There is no pneumothorax. Typically benign subpleural nodules are also visualized within the left upper lobe. None of these exceed 3 mm in diameter. In an average risk patient, no further follow-up is indicated. IMPRESSION: 1. Suboptimal pulmonary arterial opacification, but no findings to indicate acute pulmonary embolism. If pulmonary embolism remains a strong clinical concern, correlation with serial leg ultrasonography would be recommended. 2. No evidence of focal pulmonary consolidation 3. Multiple subpleural left lung pulmonary nodules. In an average risk patient, no further follow-up is indicated. ACT 112: Negative or not required by law. Electronically signed by: Alex Alexander M.D. 10/14/2020 6:[address] 10/14/20 16:42 CT head/brain wo con CLINICAL HISTORY: Head pain status post trauma. Left arm numbness. COMPARISON STUDY: No previous studies for comparison. TECHNIQUE: Axial CT of the brain is performed from the vertex to the skull base. IV contrast was not administered for this examination. A dose lowering technique was utilized adhering to the principles of ALARA. CT DOSE: FINDINGS: No intra or extra-axial mass lesions are visualized. There are age-indeterminate left basal ganglia lacunar infarcts. There is no midline shift. There is no acute hemorrhage. No calvarial fractures are visualized. There is no evidence of pathologic ventricular dilatation. There is no evidence of acute sinusitis IMPRESSION: 1. Age-indeterminate basal ganglia lacunar infarcts. 2. An MRI could be obtained in follow-up as deemed clinically appropriate. ACT 112: Negative or not required by law. Electronically signed by: Alex Alexander M.D. 10/14/2020 6:19 PM Neck CTA 10/14/20 16:42 CT angio neck with con CLINICAL HISTORY: Left hand numbness status post neck manipulation. Head trauma. Left arm numbness. COMPARISON STUDY: No previous studies for comparison. TECHNIQUE: CT angiography was performed from the aortic arch to the skull base. MIP imaging was performed. The patient was scanned in a dynamic helical fashion during intravenous administration of 112 cc of Optiray. A dose lowering technique was utilized adhering to the principles of ALARA. CT DOSE: Technique: CT angiogram of the carotid and vertebral arteries was obtained using intravenous contrast and 3-D reconstruction. NASCET criteria was utilized. Findings: The right carotid revealed no evidence of aneurysm and no evidence of dissection. There is no evidence of hemodynamic significant stenosis. The left carotid revealed no evidence of hemodynamic significant stenosis. There is no evidence of aneurysm. There is no evidence of dissection. There is no evidence of hemodynamically significant vertebral stenosis. There is no evidence of vertebral dissection. IMPRESSION: No evidence of hemodynamically significant carotid or vertebral artery stenosis. No evidence of dissection. ACT 112: Negative or not required by law. Electronically signed by: Alex Alexander M.D. 10/14/2020 6:30 PM Head CTA 10/14/20 16:44 CT angio head w con CLINICAL HISTORY: left hand numb, syncope TECHNIQUE: CT angiography of the head was performed in a dynamic helical fashion during intravenous administration of 112 cc of Optiray. MIP imaging was performed. A dose lowering technique was utilized adhering to the principles of ALARA. CT DOSE: 3064.43 mGy.cm COMPARISON STUDY: Noncontrast head CT dated 10/14/2020 FINDINGS: There are no lesion suspicious for aneurysm. There are no major intracranial branch occlusions. The dural venous sinuses appear patent. IMPRESSION: 1. No evidence of aneurysm, intracranial branch occlusion, or major intracranial stenosis. ACT 112: Negative or not required by law. Electronically signed by: Alex Alexander M.D. 10/14/2020 6:34 PM Chest X-Ray 10/14/20 16:45 XR chest 1V portable CLINICAL HISTORY: syncope COMPARISON STUDY: No previous studies for comparison. FINDINGS: The cardiac and mediastinal contours are normal. There is no evidence of focal pulmonary consolidation. There is no evidence of failure. No pleural effusions are visualized.[ IMPRESSION: No active disease in the chest. ACT 112: Negative or not required by law. Electronically signed by: Alex Alexander M.D. 10/14/2020 5:10 PM Diagnostic Findings [facility] Patient: ALEX RICARDO (Female) : 70 Status: Date: 10/15/20 00:27 Room #: S240-2 History: FELT SQUEEZING AT BACK OF NECK AND BLACKED OUT. LEFT HAND NUMBNESS FOR 1 WEEK. SAW CHIROPRACTOR TUESDAY. NO RECENT HEAD INJURY. NO KNOWN NECK INJURY. HX OF CA 3 OR 4 TIMES. HAS HAD BREAST CA, LYMPH NODES AND SKIN CA. HAS HAD CHEMO AND RADIATION. LAST CA WAS 2018. Slices: [phone] Priors: CT HEAD, CTA HEAD/NECK, CT C-SPINE Tech: Missael Anderson @ [phone] Exams: MRI HEAD , MRI C SPINE Contrast: IV Amt: 13.3 ML GADAVIST Accession Numbers: [id number] Preliminary Findings Only See Final Report For Complete Findings MRI HEAD : Impression: No evidence of acute infarction. Chronic infarction of the left lentiform nucleus. Mild parenchymal volume loss chronic microvascular ischemic changes. No mass lesion, mass effect, or hydrocephalus. No abnormal enhancement on postcontrast sequences. Mild mucosal thickening in the left maxillary sinus. MRI C SPINE : Impression: Exam is degraded by patient motion. Mild degenerative change of the cervical spine without high-grade spinal canal stenosis. Mild to moderate foraminal narrowing is seen in the cervical spine, most significant at C5-C6 and C6-C7 as well as moderate left foraminal narrowing at C3-C4. No discrete signal abnormality in the cervical spinal cord. Radiologist: Daniel Garrison MD Study ready at 00:36 and initial results transmitted at 00:56 Results also transmitted to [address] [place] [address] ([id number]) @ [phone] (Fax) Results also transmitted to ER, ER @ [phone] (Fax) *This report constitutes a preliminary interpretation only. Non-acute findings felt to be unrelated to the clinical presentation may not be discussed in this report. The study will be interpreted and a final report will be generated by the local Radiologist the following shift. To reach the hospital radiology department call [phone]. If a discrepancy is found between the preliminary and final interpretations of this study, please notify us via our Client Portal at [email or web address] QA Exams.You can also fax this report with a description of the discrepancy, or include the final report, to our daytime fax number [phone].If faxing, please indicate the severity of discrepancy using one of the following categories: [ ] 1 - Agree/Informational [ ] 2 - Unlikely to Affect Management [ ] 3 - Possible Eventual Change of Management [ ] 4 - Probable Immediate Change of Management For all other patient related information, please fax us at [phone]. [id number] Code Status & VTE Plan Code Status Full code VTE Prophylaxis Plan VTE Prophylaxis will be ordered: Yes PG Care Time/CCT Total # of Minutes Spent Total Time Spent with Patient: Total time spent is greater than 50% in coordination of care (as documented) at patient's floor/unit and/or counseling patient: Coding Level of Care Code 67291 Initial Inpt Care Lvl 3 Diagnoses Syncope R55 Syncope type: unspecified Numbness of left hand R20.0 Degenerative joint disease of cervical spine M47.812 Chronic cerebrovascular accident (CVA) I69.30 UTI (urinary tract infection) N30.00 Hematuria presence: without hematuria Urinary tract infection type: acute cystitis Atrial flutter I48.92 (1) Syncope Syncope type: unspecified Qualified Code(s): R55 - Syncope and collapse (2) UTI (urinary tract infection) Hematuria presence: without hematuria Urinary tract infection type: acute cystitis Qualified Code(s): N30.00 - Acute cystitis without hematuria
[2020-10-15] MEDS ORDERED: GADOBUTROL 65ML VIAL IV ONE (00:17)
[2020-10-15] MEDS ORDERED: ONDANSETRON INJ 2 MG/ML 2 ML VIAL IV PRN (00:39)
[2020-10-15] MEDS ORDERED: ACETAMINOPHEN 325 MG TAB PO PRN (00:39)
[2020-10-15] MEDS ORDERED: PHARMACIST DISCHARGE MED REC CONSULT PRN (05:13)
[2020-10-15 06:44] LABS: Basophils # (auto) 0.03 K/uL (0-0.2); Basophils % (auto) 0.6 %; Eosinophils # (auto) 0.25 K/uL (0-0.5); Eosinophils % (auto) 4.6 %; Hematocrit (blood only) 43.4 % (37-47); Hemoglobin 14.8 g/dL (12.0-16.0); Immature Granulocytes # (auto) 0.01 K/uL (0.00-0.02); Immature Granulocytes % (auto) 0.2 %; Lymphocytes # (auto) 2.01 K/uL (1.2-3.4); Lymphocytes % (auto) 37.2 %; Mean Corpuscular Hemoglobin 30.3 pg (25-34); Mean Corpuscular Hgb Conc 34.1 g/dL (32-36); Mean Corpuscular Volume 88.8 fL (80-100); Mean Platelet Volume 9.3 fL (7.4-10.4); Monocytes # (auto) 0.53 K/uL (0.11-0.59); Monocytes % (auto) 9.8 %; Neutrophils # (auto) 2.57 K/uL (1.4-6.5); Neutrophils % (auto) 47.6 %; Platelet Count 320 K/uL (130-400); RDW Coefficient of Variation 13.4 % (11.5-14.5); RDW Standard Deviation 43.9 fL (36.4-46.3); Red Blood Count 4.89 M/uL (4.2-5.4)
[2020-10-15 06:52] LABS: Partial Thromboplastin Time 25.5 Seconds (21.0-31.0); Prothrombin Time 9.9 Seconds (9.0-12.0)
[2020-10-15 07:18] LABS: Alanine Aminotransferase 59 U/L (12-78); Albumin Level 3.7 gm/dl (3.4-5.0); Aspartate Aminotransferase 33 U/L (15-37); BUN Creatinine Ratio 13.1 (10-20); Blood Urea Nitrogen 12 mg/dl (7-18); Calcium 8.8 mg/dl (8.5-10.1); Carbon Dioxide 25 mmol/L (21-32); Chloride 106 mmol/L (98-107); Creatinine Clr Calc Pharmacy 108.8 ml/min; Est GFR (African American) 85.3 ml/min; Est GFR (Non-African American) 73.6 ml/min; Glucose 104 mg/dl (70-99); Magnesium 2.3 mg/dl (1.8-2.4); Potassium 3.8 mmol/L (3.5-5.1); Sodium 138 mmol/L (136-145)
[2020-10-15 07:23] LABS: Alkaline Phosphatase 40 U/L (45-117); Bilirubin,Total 0.5 mg/dl (0.2-1); Globulin 3.6 gm/dl (2.5-4.0); Total Protein 7.3 gm/dl (6.4-8.2); Troponin I < 0.015 ng/ml (0-0.045)
--- NOTE | 2020-10-15 08:13 | Magnetic Resonance Report ---
MRI OF THE BRAIN WITHOUT AND WITH IV CONTRAST CLINICAL HISTORY: Syncope. Age-indeterminate basal ganglia infarcts. Left hand numbness. COMPARISON STUDY: Noncontrast head CT dated 10/14/2020 TECHNIQUE: MRI of the brain was performed from the vertex to the skull base utilizing various T1 and T2 weighted sequences. Following the IV administration of 13.3 mL of Gadavist contrast, additional en hanced images were obtained. FINDINGS: Sagittal T1, axial diffusion, proton density and T2 weighted axial, coronal FLAIR, and pre and post a xial T1-weighted images were acquired. These were supplemented with post gadolinium coronal T1 weight ed images. No intra or extra-axial mass lesions are visualized. Axial diffusion-weighted images reveal no evidence of acute or subacute infarction. There is no evidence of ventricular dilatation. Proton density T2-weighted and FLAIR images reveal evidence for an old left basal ganglia infarct. Th ere are minimal foci of increased T2 signal in the periventricular white matter There are no abnormal flow voids. There is no evidence of pathologic enhancement. IMPRESSION: 1. No acute intracranial findings 2. No evidence of acute or subacute infarction 3. No evidence of intracranial mass 4. Old left basal ganglia lacunar infarct. ACT 112: Negative or not required by law. Electronically signed by: Alex Alexander M.D. 10/15/2020 8:11 AM
[2020-10-15] MEDS ORDERED: Nursing to Pharmacy Communication SCH (09:00)
[2020-10-15] MEDS ORDERED: ANASTROZOLE 1 MG TAB PO SCH ×2 (09:00→21:00)
[2020-10-15] MEDS ORDERED: ATORVASTATIN 40 MG TAB PO SCH (09:00)
[2020-10-15] MEDS ORDERED: ASPIRIN 81 MG CHEW PO SCH (09:00)
--- NOTE | 2020-10-15 09:28 | Cardiology Consultation ---
Date of Consultation October 15, 2020 Assessment & Plan (1) Syncope: 1 she presents with an isolated episode of syncope, it was prolonged enough that she does not recall falling or hitting the ground. Since it was not witnessed we really do not know how long she was unconscious but it probably was not very long. She did present in atrial fibrillation however the rate was not very fast and she had no symptoms during the arrhythmia so that is not a likely cause of syncope. She did convert here in the emergency room with a short period of bradycardia however that was not sufficient to explain syncope either. It seems likely that some sort of arrhythmia triggered the event but I do not t hink we have enough information to consider pacemaker implantation (for possible tachybradycardia syndrome) and I am reluctant to rate control her atrial fibrillation given her syncopal event which is possibly due to bradycardia. I would recommend long-term monitoring, I would start with a 30-day event recorder, preferably an MCOT monitor as she may have asymptomatic episodes which we could identify before she has another syncopal event. (2) Paroxysmal atrial fibrillation: She presented with atrial fibrillation which was present for 17 minutes after being placed on telemetry, she was not aware of it so it is hard to know how long it was present. It may have somehow been related to her syncopal event but the rate was not very fast and she was asymptomatic so it seems unlikely the arrhythmia was a cause of the syncope. It is possible that she has frequent episodes and perhaps termination in sinus pauses triggered the syncopal event but we do not have documentation of that. From a 30-day monitor we can get an idea of her atrial fibrillation burden. Other than anticoagulation I would not treat the arrhythmia at this time due to the possibility of exacerbating bradycardia and syncope. I would use anticoagulation, I would recommend Eliquis 5 mg twice a day. History of Present Illness Reason for Consultation: Syncope Attending Physician: Iglesia Arroyo MD History of Present Illness This is a 50-year-old woman who presented October 14, 2020 with a syncopal event. She has a background history of breast cancer and has had bilateral mastectomies. She has no cardiovascular history. Evidently she felt sudden pressure in the back of her neck when she was standing by her car and then woke up on the ground. She does not recall falling. She cannot describe to me how long she was out, she does not think very long but someone came by and was asking her if she knew where she was but apparently the event was not witnessed. She had some neck discomfort after falling but did not have any other complaints such as chest discomfort, shortness of breath or palpitations. She does not recall feeling her heart beating rapidly either after this event or at other times in the past. She has never had a prior event. Evaluation emergency room was notable for her presenting in atrial fibrillation with a rapid heart rate, about 110 bpm. She tells me that it was probably an hour and a half before she got to the emergency room, evidently her was called who came and picked her up and it was only after that that she came into the emergency room. The atrial fibrillation rhythm converted to sinus rhythm with a few seconds of bradycardia after about 17 minutes of telemetry monitoring. A repeat electrocardiogram done on October 14, 2020 at 1658 shows sin us rhythm at 75 bpm and is normal. Laboratory studies are unremarkable. Imaging studies including an MRI and CT of the brain and a chest x-ray as well as a head and neck CT angiogram were all unremarkable. At the time my evaluation she is complaining of left hand numbness but no cardiovascular symptoms at all. Allergies Allergy/AdvReac Type Severity Reaction Status Date / Time bupivacaine Allergy Severe anaphylaxis Verified 10/14/20 17:38 . dexamethasone Allergy Severe anaphylaxis Verified 10/14/20 17:38 lidocaine Allergy Severe anaphylactic Verified 10/14/20 17:38 rxn codeine Allergy Intermediate sick Verified 10/14/20 17:38 Home Medications Medication Instructions Recorded Confirmed Type anastrozole 1 mg PO DAILY 10/15/18 10/14/20 History Patient History Medical History Breast cancer, right Surgical History H/O resection of liver H/O right mastectomy Family History Other No significant family history Social History Smoking Status: Never smoker Hx Substance Use: No Preferred Language: Hebrew Communication Ability: Effective Insurance Collector Required: No Beliefs That Will Affect Care: None Current Living Situation: Spouse Current Living Situation Comment: Other Information That Helps Us Care for You: No Feels Safe at Home: Yes Safety Concerns: Feels Safe At This Time Assistive Devices: None Physical Exam Physical Exam: Constitutional: Alert, cooperative and in no distress. HEENT: Unremarkable Neck: No jugular venous distention, carotid pulses are normal and equal bilaterally without bruits. Pulmonary: Clear to auscultation bilaterally. Cardiac: Regular rhythm with no murmur, gallop or rub. Abdomen: Soft, nontender with normal bowel sounds. Extremities: No edema. Distal pulses intact. Neurologic: No focal findings. Gait is steady. Skin: No rash, ecchymoses or petechiae. Bilateral mastectomies. Results & Data ([facility]) Vital Signs (Past 12 Hours) Vital Signs Temp Pulse Pulse Resp BP BP Pulse Ox 10/15/20 07:25 37.0 C 69 19 147/92 H 94 10/15/20 07:13 66 10/15/20 03:39 37.0 C 79 16 142/81 H 97 10/15/20 00:28 36.8 C 71 20 101/69 97 10/14/20 22:00 84 19 156/98 H 95 10/14/20 21:30 72 15 152/106 H 97 Laboratory Results Cardiac Enzymes 10/14/20 10/15/20 Range/Units 16:52 06:24 AST 43 H 33 (15-37) U/L Troponin I < 0.015 < 0.015 (0-0.045) ng/ml Coagulation 10/14/20 10/15/20 Range/Units 16:52 06:24 PT 9.4 9.9 (9.0-12.0) Seconds APTT 24.9 25.5 (21.0-31.0) Seconds CBC 10/14/20 10/15/20 Range/Units 16:52 06:24 WBC 7.64 5.40 (4.8-10.8) K/uL RBC 5.04 4.89 (4.2-5.4) M/uL Hgb 15.3 14.8 (12.0-16.0) g/dL Hct 45.1 43.4 (37-47) % Plt Count 336 320 (130-400) K/uL Neut # (Auto) 4.45 2.57 (1.4-6.5) K/uL Lymph # (Auto) 2.33 2.01 (1.2-3.4) K/uL [place]lin # (Auto) 0.60 H 0.53 (0.11-0.59) K/uL Eos # (Auto) 0.21 0.25 (0-0.5) K/uL Baso # (Auto) 0.04 0.03 (0-0.2) K/uL Comprehensive Metabolic Panel 10/14/20 10/15/20 Range/Units 16:52 06:24 Sodium 138 138 (136-145) mmol/L Potassium 4.1 3.8 (3.5-5.1) mmol/L Chloride 105 106 (98-107) mmol/L Carbon Dioxide 25 25 (21-32) mmol/L BUN 13 12 (7-18) mg/dl Creatinine 1.01 0.91 (0.6-1.2) mg/dl Glucose 109 H 104 H (70-99) mg/dl Calcium 9.5 8.8 (8.5-10.1) mg/dl AST 43 H 33 (15-37) U/L ALT 67 59 (12-78) U/L Alkaline Phosphatase 48 40 L (45-117) U/L Total Protein 7.8 7.3 (6.4-8.2) gm/dl Albumin 4.1 3.7 (3.4-5.0) gm/dl Intake and Output 10/14/20 10/15/20 10/15/20 22:59 06:59 14:59 Intake Total 570 / 1020 450 / 1020 Output Total 600 / 600 Balance 570 / 420 -150 / 420 Intake: IV 570 / 570 Sodium Chloride 0.9% 500 ml @ 500 / 500 999 mls/hr IV .Q31M ZOE Rx#: [id number] cefTRIAXone SODIUM 2,000 mg In 70 / 70 70 ml @ 140 mls/hr IV NOW STA Rx#:[id number] Oral 450 / 450 Output: Urine 600 / 600 Other: # Unmeasured Voids 1 Weight 133.8 kg 130.3 kg Weight Measurement Method Chair Scale Built in [facility] Diagnostic Findings Telemetry: Atrial fibrillation for 17 minutes after presentation, heart rate 110 to 120 bpm. Sinus rhythm since. PG Care Time/CCT Total # of Minutes Spent Total Time Spent with Patient: Total time spent is greater than 50% in coordination of care (as documented) at patient's floor/unit and/or counseling patient: Coding Level of Care Code 47830 Office/OBS Consult Lvl 4 Diagnoses Syncope R55 Syncope type: unspecified Paroxysmal atrial fibrillation I48.0 (1) Syncope Syncope type: unspecified Qualified Code(s): R55 - Syncope and collapse
--- NOTE | 2020-10-15 09:59 | XCELERA ---
[id number]
[2020-10-15 10:17] LABS: Estimated Average Glucose 126 mg/dl
[2020-10-15 10:33] LABS: Chol HDL Ratio 4; Cholesterol 231 mg/dl (0-200); HDL Cholesterol 52 mg/dl; LDL Cholesterol Calculated 138 mg/dl; Triglycerides 205 mg/dl (0-150); VLDL Cholesterol 41 mg/dl
--- NOTE | 2020-10-15 11:07 | Magnetic Resonance Report ---
MRI OF THE CERVICAL SPINE COMBO CLINICAL HISTORY: Cervicalgia. Left hand numbness. COMPARISON STUDY: CT of the cervical spine dated 10/14/2020. TECHNIQUE: MRI of the cervical spine is performed utilizing various T1 and T2-weighted sequences in t he axial and sagittal planes. Contrast-enhanced sequences are acquired following the IV administratio n of 13.3 cc of Gadavist. The examination is modestly degraded by motion artifact. FINDINGS: Cervical spine: Vertebral body height and alignment is maintained throughout the cervical spine. Ther e is straightening of the cervical lordosis. Anterior osteophytes are seen throughout. The atlantoden rupal articulation is maintained. The spinous processes appear intact. Small hemangiomas are noted in t he bodies of T2 and T3. Intervertebral discs: Degenerative disc desiccation is seen throughout the cervical spine. There is m ild loss of height, greatest at C5-C6 and C6-C7. Spinal cord: The cervical spinal cord is normal in morphology and signal intensity. No abnormal postc ontrast enhancement is identified. C2-C3: Mild facet arthropathy is of no consequence. The central canal and neural foramina are patent. C3-C4: A posterior disc osteophyte complex eccentric to the left abuts the ventral cord. Left lateral disc bulge in conjunction with uncovertebral and facet arthropathy contribute to moderate to severe left neural foraminal stenosis. This may impinge on the exiting left C4 nerve root. Uncovertebral and facet arthropathy contribute to mild to moderate right neural foraminal stenosis. C4-C5: Facet arthropathy contributes to mild right neural foraminal stenosis. C5-C6: A posterior disc osteophyte complex eccentric to the right abuts the ventral cord. Right later al disc bulge in conjunction with uncovertebral and facet arthropathy contributes to severe right ximena ral foraminal stenosis. This may impinge on the exiting right C6 nerve root. Uncovertebral and facet arthropathy contribute to mild left neural foraminal stenosis. C6-C7: A posterior disc osteophyte complex eccentric to the right effaces the ventral subarachnoid sp cheli. Right lateral disc bulge causes moderate right neural foraminal stenosis and may impinge on the exiting right C7 nerve root. The left neural foramen is patent. C7-T1: Unremarkable. Soft tissues: The prevertebral and paraspinous soft tissues are within normal limits. Brain parenchyma: The visualized brain parenchyma at the skull base is normal in appearance. IMPRESSION: 1. No acute abnormality is seen involving the cervical spine. 2. Osteopenia and spondylotic change as above. See discussion for detailed level by level analysis. 3. The cervical spinal cord is normal in morphology and signal intensity. No abnormal postcontrast en hancement is identified. Dictated: 10/15/2020 9:52 AM Transcribed: 10/15/2020 10:27 AM [place] [id number] [facility] Electronically signed by: Fabrizio Cordero M.D. 10/15/2020 11:06 AM
[2020-10-15] MEDS ORDERED: APIXABAN 5 MG TABLET PO SCH (12:00)
--- NOTE | 2020-10-15 13:24 | Electrocardiogram Report ---
Test Reason : Blood Pressure : / mmHG Vent. Rate : 109 BPM Atrial Rate : 394 BPM P-R Int : 000 ms QRS Dur : 100 ms QT Int : 342 ms P-R-T Axes : 000 -25 101 degrees QTc Int : 460 ms Atrial fibrillation with rapid ventricular response Leftward axis Nonspecific ST and T wave abnormality Abnormal ECG No previous ECGs available Confirmed by Zaid Silvestre ([id number]) on 10/15/2020 1:24:37 PM Referred By: REFERRED SELF Confirmed By:Zaid Silvestre
--- NOTE | 2020-10-15 13:25 | Electrocardiogram Report ---
Test Reason : Blood Pressure : / mmHG Vent. Rate : 075 BPM Atrial Rate : 075 BPM P-R Int : 158 ms QRS Dur : 100 ms QT Int : 402 ms P-R-T Axes : 013 -17 043 degrees QTc Int : 448 ms Normal sinus rhythm Leftward axis Borderline ECG When compared with ECG of 14-OCT-2020 16:40, (unconfirmed) Sinus rhythm has replaced Atrial fibrillation T wave inversion no longer evident in Lateral leads Confirmed by Zaid Silvestre ([id number]) on 10/15/2020 1:25:32 PM Referred By: REFERRED SELF Confirmed By:Zaid Silvestre
--- NOTE | 2020-10-15 13:49 | Neurology Consultation ---
Date of Consultation October 15, 2020 Assessment & Plan (1) Paroxysmal atrial fibrillation: (2) Hypertension: (3) Chronic cerebrovascular accident (CVA): Audrey Billings is a 50 yo woman w/ PMH of HTN, h/o breast cancer s/p mastectomy and partial liver resection, Aflutter/pAFib on no AC/AP and left hand weakness x1 week who p/t [facility] after a syncopal event on 10/14/20. Symptom localization: n/a (current symptoms not related to incidental strokes noted on imaging) Stroke mechanism: likely cardioembolic Stroke WorkUp: - CT head: shows chronic infarcts in the left caudate head and left centrum semiovale, no hemorrhage or clear metastatic disease noted - CTA head/neck: shows no LVO, high-grade stenosis or aneurysm. - MRI brain: shows no acute infarct, no hemorrhage, no clear metastatic disease, and chronic infarcts in the left caudate head and centrum semiovale - TTE: EF 60-65%, no valvular pathology, mild LVH - Telemetry: pAFib in ED - A1c: 6.0 - FLP: 138 - Troponin, TSH: negative, WNL - Hypercoagulable labs (ordered for primary team): Cardiolipin Ab, Protein C and S, ATIII, FV Leiden, PT gene mutation, APC resistance Stroke Management: - Acute treatment: n/a (outside of time window) - Continuous cardiac monitoring, agree with 30 day event monitor per cardiology recs - Vitals, Neurochecks, NIHSS per unit routine - BP parameters: SBP CAP 180, start anti-hypertensives for goal normotension - Complete ischemic stroke workup with hypercoagulable labs given young age - Consult speech, PT, OT for supportive management - Will dependency counselor concerning stroke education, smoking cessation, healthy diet, physical activity, weight loss - Follow up with PCP for assistance with outpatient goals (BP <130/80, LDL <70, A1c <7) - Follow up in neurology clinic in 6-8 weeks with SHANTA Kelly - Can continue to see chiropractor for left hand tingling (patient preference) and consider EMG if symptoms do not improve Secondary Stroke Prevention: - Antiplatelet: not indicated - Anticoagulation: agree with cardiology recs to start apixaban - Statin: start Atorvastatin 80mg daily HTN: - BP parameters, as above - Start home medications with goal of lowering BP to normotension over next 3-4 days FEN/GI: - Diet: Cardiac HH diet and PO meds given absence of bulbar signs or symptoms - Monitor lytes and replete PRN Glucose Control: - Sliding scale insulin and accuchecks per primary team to avoid hyperglycemia Thank you for this interesting consult. Plan of care was discussed with primary team. Please call with any questions. History of Present Illness Attending Physician: Iglesia Arroyo MD History of Present Illness Audrey Billings is a 50 yo woman w/ PMH of HTN, h/o breast cancer s/p mastectomy and partial liver resection, Aflutter/pAFib on no AC/AP and left hand weakness x1 week who p/t [facility] after a syncopal event on 10/14/20. In the ED, she was tachycardic and was noted to be in AFib with RVR, BP 158/103, respiratory 20, satting 95% room air. Labs notable for WBC 7.64, hemoglobin 15.3, platelets 236, electrolytes within normal, creatinine 1.01, glucose 1, INR 0.9, calcium/magnesium within normal, AST mildly elevated 43, ALT and alkaline phosphatase within normal, troponin negative, TSH within normal, UA showed pyuria but no clear infection, Covid negative. She received fluids and hydralazine for A. fib with RVR with resolution of the repeat EKG. CT of the cervical spine showed bilateral cervical lymph nodes multilevel degenerative changes with no acute fracture subluxation noted. CT chest shows no PE, no focal consolidation, multiple small subpleural nodules in the left lung. Further imaging independently reviewed. CT head shows chronic infarcts in the left caudate head and left centrum semiovale, no hemorrhage or clear metastatic disease noted. CTA head and neck shows no LVO, high-grade stenosis or aneurysm. MRI brain shows no acute infarct, no hemorrhage, no clear metastatic disease, and chronic infarcts in the left caudate head and centrum semiovale. MRI C- spine shows multilevel degenerative changes with multilevel neuroforaminal stenosis maximal at the left C3-C4 (moderate to severe) and right C5-C6 (severe). On examination, she reports that she noticed left hand tingling intermittently for about one week and then a syncopal episode yesterday where she reports that her colleague saw her shake briefly afterwards. No loss of bowel/bladder or tongue biting. Does not take AC/AP at home. No h/o prior stroke like symptoms that she is aware of. Allergies Allergy/AdvReac Type Severity Reaction Status Date / Time bupivacaine Allergy Severe anaphylaxis Verified 10/14/20 17:38 . dexamethasone Allergy Severe anaphylaxis Verified 10/14/20 17:38 lidocaine Allergy Severe anaphylactic Verified 10/14/20 17:38 rxn codeine Allergy Intermediate sick Verified 10/14/20 17:38 Home Medications Medication Instructions Recorded Confirmed Type anastrozole 1 mg PO DAILY 10/15/18 10/14/20 History Patient History Medical History Breast cancer, right Surgical History H/O resection of liver H/O right mastectomy Family History Other No significant family history Social History Smoking Status: Never smoker Hx Substance Use: No Preferred Language: Chilean Communication Ability: Effective Inspector And Mender Required: No Beliefs That Will Affect Care: None marital status: Current Living Situation: Spouse Current Living Situation Comment: Other Information That Helps Us Care for You: No Feels Safe at Home: Yes Safety Concerns: Feels Safe At This Time Assistive Devices: None Review of Systems Review of Systems: 14 point review of systems completed and negative except as in HPI. Exam (Neuro) Physical Exam: General Exam: GEN: NAD, sitting down in examination bed. HEENT: No conjunctival injection, no rhinorrhea CV: RRR on monitor, no significant edema. PULM: Nonlabored respirations on room air. Neuro Exam: MS: Awake and Alert. Oriented to person, place, and date. Speech fluent and appropriate without dysarthria or paraphasic errors. Language intact including naming, comprehension, repetition. Cognition and memory grossly intact. Attention intact. No neglect. CN: Visual sims full. No extinction to double simultaneous stimuli. Unable to visualize fundi on fundoscopic exam. PERRLA OU. EOMI without nystagmus. Facial sensation intact to LT. Facial muscles full and symmetric. Hearing intact to conversation. Shoulder shrug normal. Tongue midline. MOTOR: Normal bulk and tone. No pronator drift. BUE strength 5/5 at deltoids, biceps, triceps, wrist flexors and extensors, and finger flexors bilaterally. BLE strength 5/5 at iliopsoas, hamstrings, quadriceps, tibialis anterior, and gastrocnemius bilaterally. REFLEXES: 1+ at biceps, triceps, brachioradialis, trace patella, and absent Ac hilles bilaterally. Flexor plantar responses bilaterally. SENSORY: Intact to LT throughout, no extinction to double simultaneous stimuli. Vibration diminished in BLEs up to the knees. COORDINATION: No dysmetria or ataxia on [id number] bilaterally. Normal Hang bilaterally. GAIT: Deferred due to physical status. NIH STROKE SCALE 1A. Level of Consciousness (0-3) = 0 1B. LOC Questions (0-2) = 0 1C. LOC Commands (0-2) = 0 2. Best Horizontal Gaze (0-2) = 0 3. Visual Sism (0-3) = 0 4. Facial Palsy (0-3) = 0 5. Motor Arm Right (0-4) = 0 Left (0-4) = 0 6. Motor Leg Right (0-4) = 0 Left (0-4) = 0 7. Limb Ataxia (0-2) = 0 8. Sensory (0-2) = 0 9. Best Language (0-3) = 0 10. Dysarthria (0-2) = 0 11. Extinction and Inattention (0-2) = 0 NIHSS TOTAL = 0 Results & Data ([facility]) Vital Signs (Past 12 Hours) Vital Signs Temp Pulse Pulse Resp BP Pulse Ox 10/15/20 11:55 36.7 C 69 18 143/89 H 93 10/15/20 07:25 37.0 C 69 19 147/92 H 94 10/15/20 07:13 66 10/15/20 03:39 37.0 C 79 16 142/81 H 97 PG Care Time/CCT Total # of Minutes Spent Total Time Spent with Patient: Total time spent is greater than 50% in coordination of care (as documented) at patient's floor/unit and/or counseling patient: Coding Level of Care Code 23306 Inpt Consult Level 5 Diagnoses Paroxysmal atrial fibrillation I48.0 Hypertension I10 Hypertension type: unspecified Chronic cerebrovascular accident (CVA) I69.30 (1) Hypertension Hypertension type: unspecified Qualified Code(s): I10 - Essential (primary) hypertension
[2020-10-15] MEDS ORDERED: cefTRIAXone SODIUM 2,000 MG in DEXTROSE 5% 50 ML IV SCH (16:00)
[2020-10-15] MEDS ORDERED: STROKE PATIENT DISCHARGE STA (17:01)
--- NOTE | 2020-10-15 17:02 | Discharge Summary ---
Date of Service October 15, 2020 Admission HPI Per Admitting Provider The patient is a 50-year-old female with a past medical history including breast cancer, who presents to the emergency department with complaint of a syncopal episodes noted above, and 1 week of left hand numbness. Work-up in the emergency department included the following studies: CT of head without contrast showed age indeterminate basal ganglia infarcts CTA head neck were both negative MRI of brain showed a chronic infarct in the left lentiform nucleus MRI of C-spine showed multilevel foraminal stenosis from C3-C7. Initial EKG showed atrial flutter at rate of 100 bpm. Follow-up EKG showed normal sinus rhythm at 75 bpm. The change occurred without intervention Admission Exam Per Admitting Provider The patient is awake, alert and oriented 3, well developed and well nourished, normocephalic and atraumatic, lying in bed and in no acute distress. HEENT--PERRL, EOMI, mucous membranes and oropharynx dry. Neck--supple. No JVD. No bruits. Thyroid normal, trachea midline, no adenopathy. Heart--normal S1 and S2. No murmurs, rubs or gallops. Lungs--clear bilaterally, no respiratory distress, no accessory muscle use. Abdomen--normal bowel sounds and soft. Nontender. Nondistended. Morbidly obese Extremities--no cyanosis or clubbing. No edema. Dermatologic--normal skin turgor, normal color, no abnormal lymph nodes, no rash. Neurologic--cranial nerves II through XII grossly intact. Mildly decreased sensation to touch left hand Rheumatologic--normal range of motion. Psychiatric--normal affect. Principal Diagnosis Syncope - suspected dysrhythmia Paroxysmal atrial fibrillation Left hand numbness Old left basal ganglia infarct Discharge Exam Constitutional well developed and well nourished; no acute distress Eyes PERRL, conjunctivae normal, anicteric sclerae Neck trachea midline, no thyromegaly Respiratory normal respiratory effort, lungs clear to auscultation Cardiovascular RRR, no murmur, no edema Gastrointestinal (Abdomen) normal bowel sounds, soft, nontender, no hepatosplenomegaly Musculoskeletal no cyanosis or clubbing, extremities motor strength 5/5 Skin no rashes, warm and dry Neurologic moves all extremities and awake; no focal motor deficits and not confused Speech / Cognition: normal speech Motor/Sensory: + sensory deficit (mild left hand numbness); no tremor and no pronator drift Cranial Nerves: PERRL, EOM intact bilaterally, normal facial strength, tongue midline, able to rotate head bilaterally, able to elevate shoulders bilaterally, no nystagmus and symmetric palate elevation Psychiatric A+Ox3, euthymic affect Discharge Data Allergies Allergy/AdvReac Type Severity Reaction Status Date / Time bupivacaine Allergy Severe anaphylaxis Verified 10/14/20 17:38 . dexamethasone Allergy Severe anaphylaxis Verified 10/14/20 17:38 lidocaine Allergy Severe anaphylactic Verified 10/14/20 17:38 rxn codeine Allergy Intermediate sick Verified 10/14/20 17:38 Consultations 10/14/20 19:58 ED Decision to Admit Stat 10/15/20 05:13 Consult Neurology Routine 10/15/20 05:17 Consult Cardiology Routine Ordered Studies 10/14/20 16:42 CT angio chest PE protocol Stat IMPRESSION: 1. Suboptimal pulmonary arterial opacification, but no findings to indicate acute pulmonary embolism. If pulmonary embolism remains a strong clinical concern, correlation with serial leg ultrasonography would be recommended. 2. No evidence of focal pulmonary consolidation 3. Multiple subpleural left lung pulmonary nodules. In an average risk patient, no further follow-up is indicated. CT angio neck with con Stat IMPRESSION: No evidence of hemodynamically significant carotid or vertebral artery stenosis. No evidence of dissection. CT cervical spine wo con Stat IMPRESSION: No evidence of acute fracture or traumatic subluxation. CT head/brain wo con Stat IMPRESSION: 1. Age-indeterminate basal ganglia lacunar infarcts. 2. An MRI could be obtained in follow-up as deemed clinically appropriate. 10/14/20 16:44 CT angio head w con Stat IMPRESSION: 1. No evidence of aneurysm, intracranial branch occlusion, or major intracranial stenosis. 10/14/20 21:10 MR brain wo/w con Urgent IMPRESSION: 1. No acute intracranial findings 2. No evidence of acute or subacute infarction 3. No evidence of intracranial mass 4. Old left basal ganglia lacunar infarct. MR cervical spine wo/w con Urgent IMPRESSION: 1. No acute abnormality is seen involving the cervical spine. 2. Osteopenia and spondylotic change as above. See discussion for detailed level by level analysis. 3. The cervical spinal cord is normal in morphology and signal intensity. No abnormal postcontrast enhancement is identified. Hospital Course (1) Syncope: Audrey Billings is a 50 year old female admitted to [facility] from October 14 to 2019 due to a syncopal episode. CT head and MRI brain showed an old left basal ganglia lacunar infarct (prior stroke). No acute stroke was identified and this is not suspected to be the cause of your left hand numbness. Hypercoagulability labs ordered by neurology are outstanding at discharge. Per neurology recommendations it is recommended to start on atorvastatin for hypercholesterolemia to reduce stroke risk as prescribed below although prior stroke suspected to be cardioembolic given paroxysmal atrial fibrillation (see below). She was noted to have paroxysmal atrial fibrillation in the Emergency room. This was present for approximately 17 minutes. Given CVA above she will be started on Eliquis for stroke risk reduction. TTE unremarkable. She will follow up with cardiology below for ongoing management of this. Syncopal episode is concerning for arrhythmia other than atrial fibrillation and a 30 day event monitor has been ordered. Recommend she follows up with her PCP after this has been done for results of this. (2) Numbness of left hand: Unclear cause of this but not suspect to be prior CVA given MRI imaging. She will follow up with neurology for consideration of NCS/EMG if persistent. (3) Degenerative joint disease of cervical spine: (4) Chronic cerebrovascular accident (CVA): (5) UTI (urinary tract infection): ruled out (6) Atrial flutter: Total Time Total Time Spent Total Time Spent (In Minutes): 50 Total Time Includes: Examination of the Patient, Discharge Planning, Medication Reconciliation and Communication With Other Providers Discharge Plan Discharge Items Patient Disposition: Home - Self-Care Reason For Visit: SYNCOPE, L HAND NUMBNESS, BASAL GANGLIA INFARCTS Discharge Diagnosis: Syncope - suspected dysrhythmia Paroxysmal atrial fibrillation Left hand numbness Old left basal ganglia infarct Condition on Discharge: Fair Activity: Resume your previous activity Non-emergency contact: Primary Care Provider, Lubricating Specialist and Neurologist Call non-emergency contact if: you have any medication questions Follow-up/Referrals: Maximino Badillo MD [Physician] - (4 weeks) Analia Saenz MD [Physician] - (6-8 weeks) Santosh Rosas [Primary Care Provider] - Diet: Heart Healthy Addtl Attending Provider Instructions: You were admitted to [facility] from October 14 to 2019 due to a syncopal episode. CT head and MRI brain showed an old left basal ganglia lacunar infarct (prior stroke). No acute stroke was identified and this is not suspected to be the cause of your left hand numbness. Hypercoagulability labs ordered by neurology are outstanding at discharge. Per neurology recommendations it is recommended to start on atorvastatin for hypercholesterolemia to reduce your risk of further strokes. You were also noted to have paroxysmal atrial fibrillation in the Emergency room. Suspect this is the cause of your stroke and recommend anticoagulation with Eliquis as prescribed below to reduce your risk of stroke in the future. Please follow up with cardiology for ongoing management of this. With regards to your syncopal episode this is concerning for an arrhythmia and a 30 day event monitor will be arranged as outpatient. Please follow up with your primary care physician after this has taken place for results of this. Kind regards, Dr Iglesia Arroyo Pending Studies at Discharge: Yes Stand-Alone Forms: Medications to Prevent Stroke, My [facility] [employer], Work/School Release, Smoking Cessation Medications and DC Order Prescriptions: New atorvastatin 40 mg Tablet 40 mg PO QAM Qty: 30 RF: 0 Eliquis 5 mg Tablet 5 mg PO BID Qty: 60 RF: 0 Continued anastrozole 1 mg Tablet 1 mg PO DAILY RF: 0 Discharge Orders: Discharge Order (Routine); Ordered 10/15/20 Ordered By: Iglesia Tang/Other Patient Handouts: Prediabetes, 5 Steps for Eating Healthier, A1C Admission Data Admit Date/Time: 10/14/20 21:09 Attending Provider: Iglesia Arroyo Admit Provider: Morris Kessler Primary Care Provider: Santosh Rosas Other Providers: Morris Kessler ; Analia Saenz ; Maximino Badillo Other Interventions: Discharge Summary Assessment (RN) Last Done: 10/15/20 17:22 Coding Level of Care Code D/C Day Management >30 mins Diagnoses Syncope R55 Syncope type: unspecified Numbness of left hand R20.0 Degenerative joint disease of cervical spine M47.812 Chronic cerebrovascular accident (CVA) I69.30 UTI (urinary tract infection) N30.00 Hematuria presence: without hematuria Urinary tract infection type: acute cystitis Atrial flutter I48.92
--- NOTE | 2020-10-15 19:25 | Pharmacy Report ---
Pharmacist Stroke Counseling - Date of Service October 15, 2020 - Scope: Pharmacy has been consulted to provide medication discharge counseling for this patient admitted with *old ischemic stroke per imaging* as per the Pharmacist Discharge Counseling for Stroke Patients Protocol. - Medications on Discharge: Home Medications Medication Instructions Recorded Confirmed anastrozole 1 mg PO DAILY 10/15/18 10/14/20 New Rx's Medication Instructions Recorded apixaban [Eliquis] 5 mg PO BID #60 tab 10/15/20 atorvastatin 40 mg PO QAM #30 tab 10/15/20 - Action: The above medications, specifically ones for stroke treatment/prophylaxis, have been reviewed in detail with the patient and/or patient graphic art sales representative(s) prior to discharge. This includes indication, common adverse reactions, drug interactions, and medication administration. Medication counseling has been employed using the teach-back method to ensure understanding. - Outcome: The patient and/or patient graphic art sales representative(s) have demonstrated understanding of the medications. Additional comments: * Patient did not have an acute stroke, but counseling was done as new Eliquis Rx noted * Patient has commercial insurance; is unsure if Eliquis covered/affordable. Explained that she can use surgical garment inspector coupon to reduce costs. If it's not affordable, she should discuss with her provider to change to an alternative anticoagulation * Advised to monitor for bleeding/bruising; avoid NSAID's * Has never been on statin; told to monitor for any new myalgia Thank you for allowing pharmacy to be involved in the care of this patient. Please call [phone] with any additional questions
== END 2020-10-15 18:07 | disposition home or self-care (01) | DRG 309 ==
LOC: ED 16:04 → SUATTDRO 21:09 → 2S 21:09

== ENCOUNTER 2023-07-10 19:49 | Observation (INO) ==
[2023-07-10 20:53] LABS: Appearance Urine Cloudy (Clear); Bacteria Urine Automated Negative (Negative); Blood Urine Negative (Negative); Color Urine Dark Yellow; Epithelial Cell Urine Auto 20-30 /lpf (0-5); Glucose Urine UA 2+ (Negative); Ketones Urine Trace (Negative); Leukocyte Esterase Urine 2+ (Negative); Nitrite Urine Negative (Negative); Protein Urine Trace (Negative); RBC Urine Automated 0-4 /hpf (0-4); Specific Gravity Urine 1.029 (1.000-1.030); Urobilinogen Urine Positive (Negative); WBC Urine Automated >30 /hpf (0-5); pH Urine 5.5 (4.5-7.5)
[2023-07-10 20:59] LABS: Bilirubin Urine 1+ (Negative)
[2023-07-10 21:05] LABS: Basophils # (auto) 0.09 K/uL (0.00-0.20); Basophils % (auto) 1.5 %; Eosinophils # (auto) 0.06 K/uL (0.00-0.50); Hematocrit (blood only) 37.6 % (37.0-47.0); Hemoglobin 12.8 g/dl (12.0-16.0); Immature Granulocytes # (auto) 0.03 K/uL (0.01-0.20); Immature Granulocytes % (auto) 0.5 %; Lymphocytes # (auto) 1.52 K/uL (1.20-3.40); Lymphocytes % (auto) 24.6 %; Mean Corpuscular Hemoglobin 33.1 pg (25.0-34.0); Mean Corpuscular Volume 97.2 fL (80.0-100.0); Mean Platelet Volume 9.3 fL (9.4-12.4); Monocytes # (auto) 1.02 K/uL (0.11-0.59); Monocytes % (auto) 16.5 %; Neutrophils # (auto) 3.45 K/uL (1.40-6.50); Neutrophils % (auto) 55.9 %; Platelet Count 260 K/uL (130-400); RDW Coefficient of Variation 13.3 % (11.5-14.5); RDW Standard Deviation 47.5 fL (36.4-46.3); Red Blood Count 3.87 M/uL (4.20-5.40); White Blood Count 6.17 K/ul (4.8-10.8)
[2023-07-10 21:10] LABS: Albumin Globulin Ratio 1.1 (0.9-2); Albumin Level 4.1 gm/dl (3.4-5.0); BUN Creatinine Ratio 11.5 (10-20); Bilirubin,Total 0.4 mg/dl (0.2-1.0); Calcium 8.7 mg/dl (8.6-10.3); Creatinine Clr Calc Pharmacy 76.9 ml/min; Est GFR (African American) 54.1 ml/min; Est GFR (Non-African American) 46.7 ml/min; Globulin 3.9 gm/dl (2.5-4.0); Potassium 3.9 mmol/L (3.5-5.1)
[2023-07-10] MEDS: cefTRIAXone SODIUM 2,000 MG/50 ML BAG IV STA (21:58)
[2023-07-10] MEDS: SODIUM CHLORIDE 0.9% 1,000 ML IV ONE (21:58)
[2023-07-10] MEDS: ONDANSETRON INJ 2 MG/ML 2 ML VIAL IV STA (22:44)
[2023-07-10] MEDS: OPTIRAY 320 125ml IV ONE (22:53)
--- NOTE | 2023-07-10 23:05 | Emergency Department Note ---
History of Present Illness General Chief complaint: Urinary Symptoms Stated complaint: LOWER BACK PAIN, URINARY SYMPTOMS Time Seen by Provider: 07/10/23 21:32 History of Present Illness Maximum Pain Intensity: 6 This 52-year-old female with history of metastatic breast cancer on chemotherapy presents the ER complaining of urinary symptoms back and abdominal discomfort for the past several days. She is also had some subjective fever and chills. Patient denies chest pain, dyspnea, cough, congestion, vomiting, diarrhea. She is concerned she might have a urinary kidney infection. Home Medications Medication Instructions Recorded Confirmed Type anastrozole 1 mg tablet 1 mg PO DAILY 10/15/18 10/14/20 History apixaban 5 mg tablet (Eliquis) 5 mg PO BID #60 tabs 10/15/20 Rx atorvastatin 40 mg tablet 40 mg PO QAM #30 tabs 10/15/20 Rx Allergies Allergy/AdvReac Type Severity Reaction Status Date / Time bupivacaine Allergy Severe anaphylaxis Verified 10/14/20 17:38 . dexamethasone Allergy Severe anaphylaxis Verified 10/14/20 17:38 lidocaine Allergy Severe anaphylactic Verified 10/14/20 17:38 rxn codeine Allergy Intermediate sick Verified 10/14/20 17:38 Past Med/Surg History Medical History Breast cancer, right Surgical History H/O resection of liver H/O right mastectomy Family History Other No significant family history Social History Smoking Status: Never smoker Hx Substance Use: No Preferred Language: Polish Communication Ability: Effective Exercise Scientist Required: No Beliefs That Will Affect Care: None marital status: Current Living Situation: Spouse Current Living Situation Comment: Feels Safe at Home: Yes Assistive Devices: None Review of Systems A total of 10 systems reviewed and were otherwise negative Physical Exam Vital Signs Vital Signs - 24 hr 07/10/23 20:05 07/11/23 00:00 Temperature 36.7 C Temperature Source Oral Pulse Rate 100 H Pulse Rate [Apical] 97 H Respiratory Rate 17 18 Respiratory Effort / Characteristics Non-Labored Spontaneous Non-Labored Spontaneous Respiratory Depth Normal Normal Respiratory Pattern Regular Regular Blood Pressure 152/86 H Blood Pressure [Right Arm] 142/99 H Blood Pressure Mean 108 Blood Pressure Mean [Right Arm] 113 Blood Pressure Position [Right Arm] Lying Pulse Oximetry 90 96 Oxygen Delivery Method Room Air Room Air Sepsis Recent Fever Within 48 Hours No Sepsis New/Unexplained Change in Mental Status No Sepsis Action Taken by Nursing No Action Required VITALS: Vitals are noted on the nurse's note and reviewed by myself. Vital signs stable. GENERAL: Pleasant female, in no acute distress, nondiaphoretic, well-developed well-nourished. SKIN: Capillary reflex less than 2 seconds. HEENT: Normocephalic. PERRLA. EOMI. Nares patent. Mucous membranes moist. Neck is supple without nuchal rigidity. HEART: Regular rate and rhythm LUNGS: Clear to auscultation bilaterally without wheezes, rales or rhonchi. No retractions or accessory muscle use. ABDOMEN: Positive bowel sounds x 4. Normal tympanic percussion. Soft, nontender, without masses or organomegaly. Breen sign negative. No guarding or rebound tenderness. Right CVA tenderness MUSCULOSKELETAL: No gross musculoskeletal defects. NEURO: Patient was alert and oriented to person place and time. No focal neurological deficits. Course Administered Medications Hydromorphone HCl (Hydromorphone Inj 0.5 Mg/0.5 Ml Syr) 0.5 mg IV Q15M PRN PRN Reason: Pain Stop: 07/24/23 21:49 Last Admin: 07/10/23 23:54 Dose: 0.5 mg Documented By: ALKA Discontinued Medications Ceftriaxone Sodium (Rocephin) 2,000 mg in 50 mls @ 100 mls/hr IV NOW STA Stop: 07/10/23 22:03 Last Infusion: 07/10/23 22:57 Dose: Infused Documented By: Admin: 07/10/23 21:58 Dose: 100 mls/hr Documented By: GEORGES Sodium Chloride (Nss) 1,000 mls @ 999 mls/hr IV .Q1H1M ONE Stop: 07/10/23 22:34 Last Infusion: 07/11/23 00:41 Dose: Infused Documented By: Admin: 07/10/23 21:58 Dose: 999 mls/hr Documented By: GEORGES Cefepime HCl (Maxipime) 2,000 mg in 20 mls @ 5 mls/min IV NOW STA; Protocol Stop: 07/10/23 23:50 Last Admin: 07/10/23 23:55 Dose: 5 mls/min Documented By: ALKA Ioversol (Optiray 320 125ml) 118 ml IV ONCE ONE Stop: 07/10/23 22:53 Last Admin: 07/10/23 22:53 Dose: 118 ml Documented By: ADELINA Ondansetron HCl (Ondansetron Inj 2 Mg/Ml 2 Ml Vial) 4 mg IV NOW STA Stop: 07/10/23 21:52 Last Admin: 07/10/23 22:44 Dose: Not Given Documented By: GEORGES Medical Decision Making Medical Records Attestation: I reviewed the patient's medical records. Home Medications Current Medication List: was personally reviewed by me Laboratory Data Attestation: I reviewed the patient's lab results. 07/10/23 20:36 07/10/23 20:36 Lab Results 07/10/23 07/11/23 Range/Units 20:36 00:40 WBC 6.17 (4.8-10.8) K/ul RBC 3.87 L (4.20-5.40) M/uL Hgb 12.8 (12.0-16.0) g/dl Hct 37.6 (37.0-47.0) % MCV 97.2 (80.0-100.0) fL MCH 33.1 (25.0-34.0) pg MCHC 34.0 (32.0-36.0) g/dL RDW Std Deviation 47.5 H (36.4-46.3) fL RDW Coeff of Stalin 13.3 (11.5-14.5) % Plt Count 260 (130-400) K/uL MPV 9.3 L (9.4-12.4) fL Immature Gran % (Auto) 0.5 % Neut % (Auto) 55.9 % Lymph % (Auto) 24.6 % [place] % (Auto) 16.5 % Eos % (Auto) 1.0 % Baso % (Auto) 1.5 % Neut # (Auto) 3.45 (1.40-6.50) K/uL Lymph # (Auto) 1.52 (1.20-3.40) K/uL [place] # (Auto) 1.02 H (0.11-0.59) K/uL Eos # (Auto) 0.06 (0.00-0.50) K/uL Baso # (Auto) 0.09 (0.00-0.20) K/uL Immature Gran # (Auto) 0.03 (0.01-0.20) K/uL Sodium 132 L (136-145) mmol/L Potassium 3.9 (3.5-5.1) mmol/L Chloride 98 (98-107) mmol/L Carbon Dioxide 25 (21-32) mmol/L Anion Gap 9 (3-11) BUN 15 (6-23) mg/dl Creatinine 1.31 H (0.6-1.2) mg/dl Est Cr Clr Drug Dosing 76.9 ml/min Est GFR ( Amer) 54.1 ml/min Est GFR (Non-Af Amer) 46.7 ml/min BUN/Creatinine Ratio 11.5 (10-20) Glucose 185 H (70-99(Fasting)) mg/dl Lactate 1.6 (0.4-2.0) mmol/L Calcium 8.7 (8.6-10.3) mg/dl Total Bilirubin 0.4 (0.2-1.0) mg/dl AST 33 (13-39) U/L ALT 37 (7-52) U/L Alkaline Phosphatase 37 (34-104) U/L Total Protein 8.0 (6.0-8.3) gm/dl Albumin 4.1 (3.4-5.0) gm/dl Globulin 3.9 (2.5-4.0) gm/dl Albumin/Globulin Ratio 1.1 (0.9-2) Urine Color Dark Yellow Urine Appearance Cloudy A (Clear) Urine pH 5.5 (4.5-7.5) Ur Specific [place] 1.029 (1.000-1.030) Urine Protein Trace H (Negative) Urine Glucose (UA) 2+ H (Negative) Urine Ketones Trace H (Negative) Urine Blood Negative (Negative) Urine Nitrite Negative (Negative) Urine Bilirubin 1+ H (Negative) Urine Urobilinogen Positive H (Negative) Ur Leukocyte Esterase 2+ H (Negative) Urine WBC (Auto) >30 H (0-5) /hpf Urine RBC (Auto) 0-4 (0-4) /hpf U Hyaline Cast (Auto) 5-10 H (0-5) /lpf U Epithel Cells (Auto) 20-30 H (0-5) /lpf Urine Bacteria (Auto) Negative (Negative) Imaging Data Attestation: I personally reviewed and interpreted this imaging study as follows: Radiologist's Impression: Abdomen/Pelvis CT 07/10/23 21:50 Exam(s): CT ABDOMEN + PELVIS With Contrast IV Amt: 118ML OPTIRAY 320 EXAM: CT Abdomen and Pelvis With Intravenous Contrast CLINICAL HISTORY: Reason for exam: flank pain, uti, ca pt. TECHNIQUE: Axial computed tomography images of the abdomen and pelvis with intravenous contrast. CTDI is 28.28 mGy and DLP is 1577.75 mGy-cm. Automated exposure control was utilized for the study. A dose lowering technique was utilized adhering to the principles of ALARA. CONTRAST: Patient received 118ML OPTIRAY 320 of IV contrast COMPARISON: December 11, 2020 FINDINGS: Lung bases: There is an approximately 7 cm oval area of consolidation in the right lower lobe medially abutting the pleura. ABDOMEN: Liver: There is fatty infiltration of the liver and hepatomegaly measuring 20.5 cm. No focal liver lesion is seen. Gallbladder and bile ducts: Unremarkable. No calcified stones. No ductal dilation. Pancreas: Unremarkable. No mass. No ductal dilation. Spleen: Unremarkable. No splenomegaly. Adrenals: Unremarkable. No mass. Kidneys and ureters: Unremarkable. No solid mass. No hydronephrosis. Stomach and bowel: Unremarkable. No obstruction. No mucosal thickening. PELVIS: Appendix: The appendix is normal. Bowel loops are nondilated. No acute inflammatory changes are seen involving the bowel. Bladder: Unremarkable. No mass. Reproductive: Unremarkable as visualized. ABDOMEN and PELVIS: Intraperitoneal space: Unremarkable. No free air. No significant fluid collection. Bones/joints: Sclerotic appearance of the T11 vertebral body is new since previous and could represent metastatic neoplasm. Consider bone scan and/or biopsy for further characterization. Mild degenerative changes in the spine. No fracture or subluxation. 1.4 cm sclerotic density in the right iliac bone is also new since previous and could represent metastasis. Soft tissues: Unremarkable. Vasculature: Unremarkable. No abdominal aortic aneurysm. Lymph nodes: Unremarkable. No enlarged lymph nodes. IMPRESSION: 1. There is an approximately 7 cm oval area of consolidation in the right lower lobe medially abutting the pleura. This could represent pneumonia or neoplasm. Correlate with clinical scenario. Consider PET/CT or biopsy for further characterization. 2. Sclerotic appearance of the T11 vertebral body is new since previous and could represent metastatic neoplasm. 1.4 cm sclerotic density in the right iliac bone is also new since previous and could represent metastasis. Consider bone scan and/or biopsy for further characterization. Electronically signed by: Sandeep Staples MD 07/10/23 23:41 PM MDM Narrative Prior records/ancillary studies reviewed. Triage Nursing notes reviewed. Additional history obtained from family. The patient's history was concerning for urinary symptoms and abdominal pain. Differential diagnosis: Etiologies such as appendicitis, diverticulitis, PUD, biliary pathology, UTI, pancreatitis, obstruction, mesenteric ischemia, aortic pathology, infections, inflammatory bowel disease, renal colic, as well as others were entertained. Physical examination findings: As above. ER treatment provided: An order was placed for continuous cardiac monitoring. The monitor shows a rate of 60-100 with a sinus rhythm per my Independent interpretation. Rocephin, Zofran, Dilaudid, IV fluids Cefepime was ordered for pneumonia On reassessment the patient felt better. Diagnostics interpreted by me: The labs Independently Interpreted by myself revealed urine concerning for infection sent for culture. No prior urine culture reviewed White count 6000 but patient was neutropenic the other day secondary to chemo. Blood cultures pending Imaging studies: CT as above Chest x-ray concerning for right lower lobe pneumonia per my independent rotation Consultation: A consultation was placed with the hospitalist. The case was discussed and diagnostics were reviewed. The patient was evaluated in the ER for further treatment. Exam and history seem consistent with UTI and pneumonia who is a cancer patient. Urine was initially concerning for infection and patient came in for urinary symptoms so Rocephin was ordered. CAT scan is concerning for possible pneumonia so I will cefepime was ordered. Blood cultures are pending. Medicine was consulted case discussed. She will admitted to the medical service for further evaluation and treatment. By the evaluation outlined above emergent etiologies such as appendicitis, diverticulitis, PUD, biliary pathology, pancreatitis, obstruction, mesenteric ischemia, aortic pathology, inflammatory bowel disease, renal colic, as well as others were deemed relatively unlikely. The pt informed about the findings as listed above. All questions were answered and pleased with the treatment. The chart was completed utilizing [employer] Speech voice recognition software. Grammatical errors, random word insertions, pronoun errors, and incomplete sentences are an occassional consequence of this system due to software limitations, ambient noise, and hardware issues. Any formal questions or concerns about the content, text, or information contained within the body of this dictation should be directly addressed to the physician plumber assistant for clarification. Impression & Plan UTI (urinary tract infection), Pneumonia Discharge Plan Visit Data Chief Complaint: Urinary Symptoms Stated Complaint: LOWER BACK PAIN, URINARY SYMPTOMS ED Provider: Barrie Winters ED Midlevel Provider: Chela Lopez Discharge Problem: UTI (urinary tract infection), Pneumonia Patient Disposition: Admitted As Inpatient Condition: Good Forms Stand Alone Forms: [facility] [email or web address] Prescriptions Prescriptions: No Action anastrozole 1 mg Tablet 1 mg PO DAILY atorvastatin 40 mg Tablet 40 mg PO QAM Qty: 30 0RF Eliquis 5 mg Tablet 5 mg PO BID Qty: 60 0RF Referrals Referrals: PCP,NO [Primary Care Provider] - Discharge Problem: UTI (urinary tract infection) Qualifiers: Urinary tract infection type: acute cystitis Hematuria presence: without hematuria Qualified Code(s): N30.00 - Acute cystitis without hematuria
--- NOTE | 2023-07-10 23:42 | CT Scan Report ---
Exam(s): CT ABDOMEN + PELVIS With Contrast IV Amt: 118ML OPTIRAY 320 EXAM: CT Abdomen and Pelvis With Intravenous Contrast CLINICAL HISTORY: Reason for exam: flank pain, uti, ca pt. TECHNIQUE: Axial computed tomography images of the abdomen and pelvis with intravenous contrast. CTDI is 28.28 mGy and DLP is 1577.75 mGy-cm. Automated exposure control was utilized for the study. A dose lowering technique was utilized adhering to the principles of ALARA. CONTRAST: Patient received 118ML OPTIRAY 320 of IV contrast COMPARISON: December 11, 2020 FINDINGS: Lung bases: There is an approximately 7 cm oval area of consolidation in the right lower lobe medially abutting the pleura. ABDOMEN: Liver: There is fatty infiltration of the liver and hepatomegaly measuring 20.5 cm. No focal liver lesion is seen. Gallbladder and bile ducts: Unremarkable. No calcified stones. No ductal dilation. Pancreas: Unremarkable. No mass. No ductal dilation. Spleen: Unremarkable. No splenomegaly. Adrenals: Unremarkable. No mass. Kidneys and ureters: Unremarkable. No solid mass. No hydronephrosis. Stomach and bowel: Unremarkable. No obstruction. No mucosal thickening. PELVIS: Appendix: The appendix is normal. Bowel loops are nondilated. No acute inflammatory changes are seen involving the bowel. Bladder: Unremarkable. No mass. Reproductive: Unremarkable as visualized. ABDOMEN and PELVIS: Intraperitoneal space: Unremarkable. No free air. No significant fluid collection. Bones/joints: Sclerotic appearance of the T11 vertebral body is new since previous and could represent metastatic neoplasm. Consider bone scan and/or biopsy for further characterization. Mild degenerative changes in the spine. No fracture or subluxation. 1.4 cm sclerotic density in the right iliac bone is also new since previous and could represent metastasis. Soft tissues: Unremarkable. Vasculature: Unremarkable. No abdominal aortic aneurysm. Lymph nodes: Unremarkable. No enlarged lymph nodes. IMPRESSION: 1. There is an approximately 7 cm oval area of consolidation in the right lower lobe medially abutting the pleura. This could represent pneumonia or neoplasm. Correlate with clinical scenario. Consider PET/CT or biopsy for further characterization. 2. Sclerotic appearance of the T11 vertebral body is new since previous and could represent metastatic neoplasm. 1.4 cm sclerotic density in the right iliac bone is also new since previous and could represent metastasis. Consider bone scan and/or biopsy for further characterization. Electronically signed by: Sandeep Staples MD 07/10/23 23:41 PM
[2023-07-10] MEDS: HYDROmorphone INJ 0.5 MG/0.5 ML SYR IV PRN (23:54)
[2023-07-10] MEDS: CEFEPIME 2,000 MG/20 ML VIAL IV STA (23:55)
--- NOTE | 2023-07-11 00:40 | History & Physical Report ---
Date of Service July 11, 2023 Assessment & Plan (1) UTI (urinary tract infection): Plan: 52-year-old female with history of metastatic breast cancer on chemotherapy presenting with 1 week of right flank pain. UA suggestive of dehydration as well as possible infection. Pain likely from infection, possibly from metastatic disease Observation to medical Follow cultures IV fluid with LR at 125 mL/h x 3 L Cefepime 2 g IV every 8 Pain control with Dilaudid as needed (2) Breast cancer: Plan: Noted. Patient follows with [facility] oncology. Is scheduled to see them again on 07/12/2023 for chemotherapy adjustment Pain control with Dilaudid as needed Bowel regimen with MiraLAX as needed Flexeril as needed F/E/NLR at 125 mL/h x 3 L, mild hyponatremia on exam at 132 likely secondary to volume contraction, reassess with morning labs, regular diet as tolerated ProphylaxisLovenox Codefull Dispositionobservation to medical History of Present Illness Chief Complaint: Back pain, urinary complaints Primary Care Provider: NO PCP Audrey Billings is a 52-year-old female with history of recurrent breast cancer with metastatic disease to the lung, ribs and spine on chemotherapy presenting with 1 week of sharp, stabbing back pain. She reports that she has chronic back pain due to her medical condition however, the pain over the last week has been more intense. She has had fever subjectively as well as chills, sweats and foul-smelling urine. She had 1 episode of vomiting but otherwise denies abdominal pain, diarrhea or nausea. Patient follows with Dr. Chavarria of [facility] for her cancer care. She is on Ibrance 100 mg p.o. daily x 21 days then off 7 days. She just completed a cycle and is on her off days. She is to follow-up with oncology on 07/20/2023 and are planning to discontinue this medication. She is also on Falsodex and Xgeva injections. She will likely start on Elacestrant (ORSERDU) 345mg po daily at her next appointment but has not yet started it. Patient is Zofran, Flexeril and oxycodone at home for symptom management. These medications have not improved her current back pain. In the ER, she is afebrile hemodynamically stable ER course: Cefepime Dilaudid Allergies Allergy/AdvReac Type Severity Reaction Status Date / Time bupivacaine Allergy Severe anaphylaxis Verified 07/11/23 02:48 . dexamethasone Allergy Severe anaphylaxis Verified 07/11/23 02:48 lidocaine Allergy Severe anaphylactic Verified 07/11/23 02:48 rxn codeine Allergy Intermediate sick Verified 07/11/23 02:48 Home Medications Medication Instructions Recorded Confirmed Type Fasodex 1 dose INJ DIRECTED 07/11/23 07/11/23 History Xgev Inj 1 dose INJ DIRECTED 07/11/23 07/11/23 History cyclobenzaprine 10 mg tablet 10 mg PO QPM PRN .spasm in neck 07/11/23 07/11/23 History elacestrant 345 mg tablet (Orserdu) 345 mg PO DIRECTED 07/11/23 07/11/23 History ondansetron 8 mg disintegrating 8 mg translingual Q8 PRN Nausea 07/11/23 07/11/23 History tablet oxycodone 15 mg tablet 15 mg PO Q4 PRN Pain 07/11/23 07/11/23 History Past Med/Surg History Medical History (Updated 07/11/23 @ 02:56 by Renita Staples DO) Breast cancer Surgical History H/O resection of liver H/O right mastectomy Family History Other No significant family history Social History Smoking Status: Never smoker Hx Substance Use: No Preferred Language: [place] Communication Ability: Effective Fly Rail Operator Required: No Beliefs That Will Affect Care: None marital status: Current Living Situation: Spouse Current Living Situation Comment: Feels Safe at Home: Yes Assistive Devices: None Review of Systems Review of Systems: All systems reviewed & are unremarkable except as noted in HPI & below Physical Exam Physical Exam: General: patient resting comfortably, NAD, non-toxic in appearance, AA&O x 4 Skin: warm, dry, intact, no rashes or lesions HEENT: NC/AT, PERRL, EOMI, anicteric sclera, conjunctiva without injection, external ear normal to inspection and nontender, nares patent, moist mucus membranes, dentition intact, no oropharyngeal lesions, neck supple, trachea midline, no LAD, no thyromegaly, no JVD Heart: +S1/S2, regular, no m/r/g Lungs: equal air entry bilaterally, no rales/rhonchi/wheezes Abd: +BS, soft, NT/ND, no masses/organomegaly/ascites, right flank tenderness Ext: warm, 2+ pulses in UE/LE bilaterally, no clubbing/cyanosis or edema Neuro: nonfocal, patient AA&O x 4, speech intact, no facial droop, moving all extremities on command with equal strength 5/5 Results & Data Results & Data Vital Signs (Past 12 Hours) Vital Signs Temp Pulse Pulse Resp BP BP Pulse Ox 07/11/23 00:00 97 H 18 142/99 H 96 07/10/23 20:05 36.7 C 100 H 17 152/86 H 90 O2 Del Method 07/11/23 00:00 Room Air 07/10/23 20:05 Room Air Laboratory Results Laboratory Results WBC 6.17 K/ul (4.8-10.8) 07/10/23 20:36 RBC 3.87 M/uL (4.20-5.40) L 07/10/23 20:36 Hgb 12.8 g/dl (12.0-16.0) 07/10/23 20:36 Hct 37.6 % (37.0-47.0) 07/10/23 20:36 MCV 97.2 fL (80.0-100.0) 07/10/23 20:36 MCH 33.1 pg (25.0-34.0) 07/10/23 20:36 MCHC 34.0 g/dL (32.0-36.0) 07/10/23 20:36 RDW Std Deviation 47.5 fL (36.4-46.3) H 07/10/23 20:36 RDW Coeff of Stalin 13.3 % (11.5-14.5) 07/10/23 20:36 Plt Count 260 K/uL (130-400) 07/10/23 20:36 MPV 9.3 fL (9.4-12.4) L 07/10/23 20:36 Immature Gran % (Auto) 0.5 % 07/10/23 20:36 Neut % (Auto) 55.9 % 07/10/23 20:36 Lymph % (Auto) 24.6 % 07/10/23 20:36 Emanuel % (Auto) 16.5 % 07/10/23 20:36 Eos % (Auto) 1.0 % 07/10/23 20:36 Baso % (Auto) 1.5 % 07/10/23 20:36 Neut # (Auto) 3.45 K/uL (1.40-6.50) 07/10/23 20:36 Lymph # (Auto) 1.52 K/uL (1.20-3.40) 07/10/23 20:36 Emanuel # (Auto) 1.02 K/uL (0.11-0.59) H 07/10/23 20:36 Eos # (Auto) 0.06 K/uL (0.00-0.50) 07/10/23 20:36 Baso # (Auto) 0.09 K/uL (0.00-0.20) 07/10/23 20:36 Immature Gran # (Auto) 0.03 K/uL (0.01-0.20) 07/10/23 20:36 Sodium 132 mmol/L (136-145) L 07/10/23 20:36 Potassium 3.9 mmol/L (3.5-5.1) 07/10/23 20:36 Chloride 98 mmol/L (98-107) 07/10/23 20:36 Carbon Dioxide 25 mmol/L (21-32) 07/10/23 20:36 Anion Gap 9 (3-11) 07/10/23 20:36 BUN 15 mg/dl (6-23) 07/10/23 20:36 Creatinine 1.31 mg/dl (0.6-1.2) H 07/10/23 20:36 Est Cr Clr Drug Dosing 76.9 ml/min 07/10/23 20:36 Est GFR ( Amer) 54.1 ml/min 07/10/23 20:36 Est GFR (Non-Af Amer) 46.7 ml/min 07/10/23 20:36 BUN/Creatinine Ratio 11.5 (10-20) 07/10/23 20:36 Glucose 185 mg/dl (70-99(Fasting)) H 07/10/23 20:36 Lactate 1.6 mmol/L (0.4-2.0) 07/11/23 00:40 Calcium 8.7 mg/dl (8.6-10.3) 07/10/23 20:36 Total Bilirubin 0.4 mg/dl (0.2-1.0) 07/10/23 20:36 AST 33 U/L (13-39) 07/10/23 20:36 ALT 37 U/L (7-52) 07/10/23 20:36 Alkaline Phosphatase 37 U/L (34-104) 07/10/23 20:36 Total Protein 8.0 gm/dl (6.0-8.3) 07/10/23 20:36 Albumin 4.1 gm/dl (3.4-5.0) 07/10/23 20:36 Globulin 3.9 gm/dl (2.5-4.0) 07/10/23 20:36 Albumin/Globulin Ratio 1.1 (0.9-2) 07/10/23 20:36 Urine Color Dark Yellow 07/10/23 20:36 Urine Appearance Cloudy (Clear) A 07/10/23 20:36 Urine pH 5.5 (4.5-7.5) 07/10/23 20:36 Ur Specific [place] 1.029 (1.000-1.030) 07/10/23 20:36 Urine Protein Trace (Negative) H 07/10/23 20:36 Urine Glucose (UA) 2+ (Negative) H 07/10/23 20:36 Urine Ketones Trace (Negative) H 07/10/23 20:36 Urine Blood Negative (Negative) 07/10/23 20:36 Urine Nitrite Negative (Negative) 07/10/23 20:36 Urine Bilirubin 1+ (Negative) H 07/10/23 20:36 Urine Urobilinogen Positive (Negative) H 07/10/23 20:36 Ur Leukocyte Esterase 2+ (Negative) H 07/10/23 20:36 Urine WBC (Auto) >30 /hpf (0-5) H 07/10/23 20:36 Urine RBC (Auto) 0-4 /hpf (0-4) 07/10/23 20:36 U Hyaline Cast (Auto) 5-10 /lpf (0-5) H 07/10/23 20:36 U Epithel Cells (Auto) 20-30 /lpf (0-5) H 07/10/23 20:36 Urine Bacteria (Auto) Negative (Negative) 07/10/23 20:36 Impressions Abdomen/Pelvis CT 07/10/23 21:50 Exam(s): CT ABDOMEN + PELVIS With Contrast IV Amt: 118ML OPTIRAY 320 EXAM: CT Abdomen and Pelvis With Intravenous Contrast CLINICAL HISTORY: Reason for exam: flank pain, uti, ca pt. TECHNIQUE: Axial computed tomography images of the abdomen and pelvis with intravenous contrast. CTDI is 28.28 mGy and DLP is 1577.75 mGy-cm. Automated exposure control was utilized for the study. A dose lowering technique was utilized adhering to the principles of ALARA. CONTRAST: Patient received 118ML OPTIRAY 320 of IV contrast COMPARISON: December 11, 2020 FINDINGS: Lung bases: There is an approximately 7 cm oval area of consolidation in the right lower lobe medially abutting the pleura. ABDOMEN: Liver: There is fatty infiltration of the liver and hepatomegaly measuring 20.5 cm. No focal liver lesion is seen. Gallbladder and bile ducts: Unremarkable. No calcified stones. No ductal dilation. Pancreas: Unremarkable. No mass. No ductal dilation. Spleen: Unremarkable. No splenomegaly. Adrenals: Unremarkable. No mass. Kidneys and ureters: Unremarkable. No solid mass. No hydronephrosis. Stomach and bowel: Unremarkable. No obstruction. No mucosal thickening. PELVIS: Appendix: The appendix is normal. Bowel loops are nondilated. No acute inflammatory changes are seen involving the bowel. Bladder: Unremarkable. No mass. Reproductive: Unremarkable as visualized. ABDOMEN and PELVIS: Intraperitoneal space: Unremarkable. No free air. No significant fluid collection. Bones/joints: Sclerotic appearance of the T11 vertebral body is new since previous and could represent metastatic neoplasm. Consider bone scan and/or biopsy for further characterization. Mild degenerative changes in the spine. No fracture or subluxation. 1.4 cm sclerotic density in the right iliac bone is also new since previous and could represent metastasis. Soft tissues: Unremarkable. Vasculature: Unremarkable. No abdominal aortic aneurysm. Lymph nodes: Unremarkable. No enlarged lymph nodes. IMPRESSION: 1. There is an approximately 7 cm oval area of consolidation in the right lower lobe medially abutting the pleura. This could represent pneumonia or neoplasm. Correlate with clinical scenario. Consider PET/CT or biopsy for further characterization. 2. Sclerotic appearance of the T11 vertebral body is new since previous and could represent metastatic neoplasm. 1.4 cm sclerotic density in the right iliac bone is also new since previous and could represent metastasis. Consider bone scan and/or biopsy for further characterization. Electronically signed by: Sandeep Staples MD 07/10/23 23:41 PM Code Status & VTE Plan VTE Prophylaxis Plan VTE Prophylaxis will be ordered: Yes PG Care Time/CCT Total # of Minutes Spent Total Time Spent with Patient: Total time spent is greater than 50% in coordination of care (as documented) at patient's floor/unit and/or counseling patient: Coding Level of Care Code 51497 INT INP/OBS CARE 2/55MIN Diagnoses UTI (urinary tract infection) N30.00 Hematuria presence: without hematuria Urinary tract infection type: acute cystitis Breast cancer C50.919 (1) UTI (urinary tract infection) Hematuria presence: without hematuria Urinary tract infection type: acute cystitis Qualified Code(s): N30.00 - Acute cystitis without hematuria
[2023-07-11] MEDS ORDERED: CYCLOBENZAPRINE HCL 10 MG TAB PO PRN (06:27)
[2023-07-11] MEDS ORDERED: ONDANSETRON INJ 2 MG/ML 2 ML VIAL IV PRN (06:27)
[2023-07-11] MEDS ORDERED: POLYETHYLENE (MIRALAX) 17 GM PACK PO PRN (06:27)
[2023-07-11] MEDS ORDERED: HYDROmorphone INJ 0.5 MG/0.5 ML SYR IV PRN (06:27)
[2023-07-11] MEDS ORDERED: ACETAMINOPHEN 325 MG TAB PO PRN (06:27)
[2023-07-11 07:22] LABS: Magnesium 2.5 mg/dl (1.7-2.4); Phosphorus 1.9 mg/dl (2.5-4.9)
[2023-07-11] MEDS: ENOXAPARIN INJ 40 MG/0.4 ML SYR SQ SCH (07:34)
[2023-07-11] MEDS: CEFEPIME 2,000 MG in SYRINGE 0 ML IV SCH (07:38)
[2023-07-11] MEDS: LACTATED RINGER'S 1,000 ML IV SCH (07:38)
[2023-07-11] MEDS: HYDROmorphone INJ 0.5 MG/0.5 ML SYR IV PRN (07:44)
--- NOTE | 2023-07-11 08:21 | XRay Report ---
XR chest 1V portable HISTORY: cough COMPARISON: Chest 10/14/2020. FINDINGS: No pneumothorax. The heart is mildly enlarged. The left lung is clear. Surgical clips withi n the axilla. Focal area of consolidation within the right medial lung base. No evidence for pulmonar y edema. Deformity within the right upper ribs. IMPRESSION: 1. Focal area of consolidation within the right medial lung base. This favors a pneumonia. 1-2 month chest x-ray follow-up recommended to ensure resolution. 2. Right upper rib deformity which favors old, healed fractures. 3. Mild cardiomegaly. ACT 112: Negative or not required by law. Electronically signed by: Jake Pa M.D. 07/11/2023 8:19 AM
--- NOTE | 2023-07-11 11:21 | Discharge Summary ---
Date of Service July 11, 2023 Admission HPI Per Admitting Provider Audrey Billings is a 52-year-old female with history of recurrent breast cancer with metastatic disease to the lung, ribs and spine on chemotherapy presenting with 1 week of sharp, stabbing back pain. She reports that she has chronic back pain due to her medical condition however, the pain over the last week has been more intense. She has had fever subjectively as well as chills, sweats and foul- smelling urine. She had 1 episode of vomiting but otherwise denies abdominal pain, diarrhea or nausea. Patient follows with Dr. Chavarria of [facility] for her cancer care. She is on Ibrance 100 mg p.o. daily x 21 days then off 7 days. She just completed a cycle and is on her off days. She is to follow-up with oncology on 07/20/2023 and are planning to discontinue this medication. She is also on Falsodex and Xgeva injections. She will likely start on Elacestrant (ORSERDU) 345mg po daily at her next appointment but has not yet started it. Patient is Zofran, Flexeril and oxycodone at home for symptom management. These medications have not improved her current back pain. In the ER, she is afebrile hemodynamically stable ER course: Cefepime Dilaudid Principal Diagnosis Breast cancer, UTI Discharge Exam The patient is awake, alert and oriented 3, well developed and well nourished, normocephalic and atraumatic, lying in bed and in no acute distress. HEENT--PERRL, EOMI, mucous membranes and oropharynx mildly dry Neck--supple. No JVD. No bruits. Thyroid normal, trachea midline, no adenopathy. Heart--normal S1 and S2. No murmurs, rubs or gallops. Lungs--clear bilaterally, no respiratory distress, no accessory muscle use. Abdomen--normal bowel sounds and soft. Mild epigastric and left sided abdominal pain Extremities--no cyanosis or clubbing. No edema. Dermatologic--normal skin turgor, normal color, no abnormal lymph nodes, no rash. Neurologic--cranial nerves II through XII grossly intact. Rheumatologic--normal range of motion. Psychiatric--normal affect. Discharge Data Allergies Allergy/AdvReac Type Severity Reaction Status Date / Time bupivacaine Allergy Severe anaphylaxis Verified 07/11/23 02:48 . dexamethasone Allergy Severe anaphylaxis Verified 07/11/23 02:48 lidocaine Allergy Severe anaphylactic Verified 07/11/23 02:48 rxn codeine Allergy Intermediate sick Verified 07/11/23 02:48 Consultations 07/10/23 23:58 ED Decision to Admit Stat Ordered Studies 07/10/23 21:50 CT Abd and Pelvis [CT abd pelvis IV con only] Stat Hospital Course (1) UTI (urinary tract infection): 52-year-old female with history of metastatic breast cancer on chemotherapy presenting with 1 week of right flank pain. UA suggestive of dehydration as well as possible infection. Pain likely from infection, possibly from metastatic disease Observation to medical Follow cultures IV fluid with LR at 125 mL/h x 3 L Cefepime 2 g IV every 8 Pain control with Dilaudid as needed -Patient wanted to be discharged home, will switch her to p.o. ciprofloxacin to 50 mg twice daily for 5 days (2) Breast cancer: Noted. Patient follows with [facility] oncology. Is scheduled to see them again on 07/12/2023 for chemotherapy adjustment Pain control with Dilaudid as needed Bowel regimen with MiraLAX as needed Flexeril as needed F/E/NLR at 125 mL/h x 3 L, mild hyponatremia on exam at 132 likely secondary to volume contraction, reassess with morning labs, regular diet as tolerated ProphylaxisLovenox Codefull Dispositionpatient wanted to be discharged home, will discharge her home to follow-up with oncologist at [facility]. Plan Discharge home Total Time Total Time Spent Total Time Spent (In Minutes): 35 Discharge Plan Discharge Items Patient Disposition: Home - Self-Care Reason For Visit: FLANK PAIN Discharge Diagnosis: UTI, breast cancer Condition on Discharge: Good Activity: Resume your previous activity Non-emergency contact: Primary Care Provider and Oncologist Call non-emergency contact if: you have any medication questions Follow-up/Referrals: PCP,NO [Primary Care Provider] - Diet: Regular Addtl Attending Provider Instructions: Please make appointment to follow-up with oncologist Pending Studies at Discharge: No Stand-Alone Forms: My [employer], Smoking Cessation Medications and DC Order Prescriptions: New ciprofloxacin HCl 250 mg tablet 250 mg PO BID 5 Days Qty: 10 0RF Continued cyclobenzaprine 10 mg tablet 10 mg PO QPM PRN (Reason: .spasm in neck) ondansetron 8 mg tablet,disintegrating 8 mg translingual Q8 PRN (Reason: Nausea) oxycodone 15 mg tablet 15 mg PO Q4 PRN (Reason: Pain) Orserdu 345 mg tablet 345 mg PO DIRECTED Rx Instructions: Did not start yet. Fasodex 1 dose INJ DIRECTED Xgev Inj 1 dose INJ DIRECTED Discharge Orders: Discharge Order (Routine); Ordered 07/11/23 Ordered By: Matt Muir Admission Data Admit Date/Time: 07/11/23 00:38 Attending Provider: Matt Muir Admit Provider: Renita Staples Primary Care Provider: PCP,NO Other Providers: Reniat Staples Coding Level of Care Code 51517 INP/OBS DISCH >30 MIN Diagnoses UTI (urinary tract infection) N30.00 Hematuria presence: without hematuria Urinary tract infection type: acute cystitis Breast cancer C50.919 Time Spent (min) 35
== END 2023-07-11 11:53 | disposition home or self-care (01) ==
LOC: EDINP 19:49 → ED 19:49 → SUATTDRO 07-11 00:38 → EDINP 07-11 06:28 → 3E 07-11 11:22